=== PATIENT | female | born 1975 | race Caucasian/White ===

== ENCOUNTER 2021-06-11 09:04 | Outpatient (REF) | payer OTHER, SELFPAY ==
[2021-06-11 09:28] LABS: MANUAL DIFF FLAG NO
[2021-06-11 10:12] LABS: Basophils Percent Auto 0.3 % (0-2); Eosinophils Absolute Auto 0.1 X10*3/uL (0.0-0.4); Eosinophils Percent Auto 0.9 % (0-4); Hematocrit 36.1 % (37-47); Imm Gran Abs Auto 0.05 X10*3/uL (0.00-0.03); Imm Gran Pct Auto 0.5 % (0.0-0.4); Lymphocytes Percent Auto 21.3 % (20-40); Mean Corpuscular HGB Conc 30.5 g/dl (31.0-35.0); Mean Corpuscular Hemoglobin 22.5 pg (27.0-33.0); Mean Platelet Volume 10.3 fL (9.4-12.3); Monocytes Absolute Auto 0.5 X10*3/uL (0.1-1.2); Monocytes Percent Auto 5.3 % (2-11); Neutrophils Absolute Auto 6.8 X10*3/uL (2.0-8.3); Neutrophils Percent Auto 71.7 % (45-73); Platelet Count 349 X10*3/uL (160-400); Red Blood Count 4.88 X10*6/uL (4.20-5.50); Red Cell Distribution Width 18.3 % (11.0-16.0); White Blood Count 9.5 X10*3/uL (4.8-10.8)
[2021-06-11 10:44] LABS: Alanine Aminotransferase 15 U/L (0-31); Alkaline Phosphatase 119 U/L (39-117); Anion Gap 11 (12-20); Aspartate Amino Transferase 19 U/L (5-31); Bilirubin Total 0.6 mg/dL (0.0-1.0); Blood Urea Nitrogen 7 mg/dL (9-16); Calcium 8.9 mg/dL (8.4-10.2); Carbon Dioxide 24 mmol/L (22-29); Chloride 109 mmol/L (96-108); Cholesterol 189 mg/dL; Estimated Glomerular Filt Rate > 60; Glucose Random 90 mg/dL (60-115); HDL Cholesterol 40 mg/dL; LDL Cholesterol Calculated 119 mg/dl; Potassium 4.2 mmol/L (3.3-5.1); Sodium 140 mmol/L (135-145); Total Protein 7.3 g/dL (6.5-8.0); Triglycerides 154 mg/dL
[2021-06-11 11:06] LABS: Free T4 (Free Thyroxine) 0.76 ng/dL (0.71-1.85); Thyroid Stimulating Hormone 0.55 uIU/mL (0.32-4.0)
[2021-06-11 11:09] LABS: Vitamin B12 430 pg/mL (200-900)
== END 2021-06-11 09:05 | disposition home or self-care (01) ==
LOC: HO.LAB 09:04
PROVIDERS: PCP Internal Medicine; Visit Provider Internal Medicine
DX: E78.00 Pure hypercholesterolemia, unspecified (principal)
CPT/HCPCS: 36415; 80053; 80061; 82306; 82607; 82746; 84439; 84443; 85025

== ENCOUNTER 2021-07-09 16:25 | Outpatient (REF) | payer OTHER, SELFPAY ==
[2021-07-09 16:34] LABS: MANUAL DIFF FLAG NO
[2021-07-09 16:47] LABS: Basophils Percent Auto 0.3 % (0-2); Eosinophils Absolute Auto 0.2 X10*3/uL (0.0-0.4); Eosinophils Percent Auto 1.4 % (0-4); Hematocrit 35.7 % (37.0-47.0); Imm Gran Abs Auto 0.04 X10*3/uL (0.00-0.03); Imm Gran Pct Auto 0.4 % (0.0-0.4); Immature Retic Fraction 32.3 % (3.0-15.9); Lymphocytes Absolute Auto 2.9 X10*3/uL (1.2-4.9); Lymphocytes Percent Auto 26.1 % (20-40); Mean Corpuscular HGB Conc 30.8 g/dl (31.0-35.0); Mean Corpuscular Hemoglobin 22.9 pg (27.0-33.0); Mean Corpuscular Volume 74.2 fL (80.0-98.0); Monocytes Absolute Auto 0.5 X10*3/uL (0.1-1.2); Monocytes Percent Auto 4.6 % (2-11); Neutrophils Absolute Auto 7.5 x10*3/uL (2.0-8.3); Neutrophils Percent Auto 67.2 % (45-73); Platelet Count 364 X10*3/uL (160-400); Red Blood Count 4.81 X10*6/uL (4.20-5.50); Red Cell Distribution Width 18.6 % (11.0-16.0); Retic HGB Equivalent 24.9 pg (30.0-35.0); Reticulocyte Percent 1.7 % (0.5-1.8); White Blood Count 11.2 X10*3/uL (4.8-10.8)
[2021-07-09 17:19] LABS: Iron 17 mcg/dL (30-160); Percent Iron Saturation 5 % (15-50); Total Iron Binding Capacity 363 mcg/dL (228-428); Unsaturated Iron Binding 346 ug/dL
[2021-07-09 17:23] LABS: Ferritin 15 ng/mL (10-250)
[2021-07-09 17:29] LABS: Erythrocyte Sedimentation Rate 44 MM/HR (0-20); Rheumatoid Factor < 15.0 IU/mL (<15.0)
[2021-07-09 17:36] LABS: Folate 7.3 ng/mL (> or = 4.0); Vitamin B12 436 pg/mL (200-900)
[2021-07-11 12:07] LABS: Anti Nuclear Antibody Screen NEGATIVE (NEGATIVE)
== END 2021-07-09 16:26 | disposition home or self-care (01) ==
LOC: HO.LAB 16:25
PROVIDERS: PCP Internal Medicine; Visit Provider Internal Medicine
DX: K58.9 Irritable bowel syndrome, unspecified (principal); R79.89 Other specified abnormal findings of blood chemistry
CPT/HCPCS: 36415; 82607; 82728; 82746; 83540; 85025; 85045; 85652; 86038; 86039; 86431

== ENCOUNTER 2021-09-02 09:02 | Outpatient (REF) | payer OTHER, SELFPAY ==
--- NOTE | ~2021-09-02 | XR_ITS ---
EXAMINATION: XR CHEST CLINICAL INFORMATION: Cough COMPARISON: None TECHNIQUE: 2 views of the chest were obtained. FINDINGS: Cardiomediastinal silhouette is normal. There is bronchial wall thickening without consolidation. No pleural effusion or pneumothorax. Mild degenerative changes in the thoracic spine. XR/XR chest 2V IMPRESSION: Bronchial wall thickening without consolidation suggesting small airways disease.
== END 2021-09-02 09:03 | disposition home or self-care (01) ==
LOC: HO.HMGCX 09:02
PROVIDERS: PCP Internal Medicine; Visit Provider Physician Assistant
DX: R05.9 Cough, unspecified (principal)
CPT/HCPCS: 71046

== ENCOUNTER 2022-03-23 14:18 | Outpatient (REF) | payer OTHER, SELFPAY ==
--- NOTE | ~2022-03-23 | XR_ITS ---
EXAMINATION: XR SHOULDER, LEFT CLINICAL INFORMATION: Unspecified sprain of the left shoulder. COMPARISON: None TECHNIQUE: Three views of the left shoulder. FINDINGS: There is mild caudal subluxation of the humeral head at the level of the glenoid as can be seen in the setting of an effusion or fluid in the subacromial bursa. No fractures. No dislocation. There is mild acromioclavicular osteoarthritis. Small glenoid osteophytes indicate minimal glenohumeral osteoarthritis. Mild soft tissue swelling at the shoulder. XR/XR shoulder LT min 2V IMPRESSION: 1. No acute fracture. Mild caudal subluxation of the humeral head at the level of the glenoid as can be seen with effusion or subacromial fluid. No dislocation. 2. Mild acromioclavicular and minimal glenohumeral osteoarthritis
== END 2022-03-23 14:19 | disposition home or self-care (01) ==
LOC: HO.HMGCX 14:18
PROVIDERS: PCP Internal Medicine; Visit Provider Internal Medicine
DX: S43.402A Unspecified sprain of left shoulder joint, initial encounter (principal)
CPT/HCPCS: 73030

== ENCOUNTER 2022-05-21 08:46 | Outpatient (REF) | payer OTHER, SELFPAY ==
[2022-05-21 09:00] LABS: MANUAL DIFF FLAG NO
[2022-05-21 09:52] LABS: Basophils Absolute Auto 0.1 X10*3/uL (0.0-0.2); Basophils Percent Auto 0.4 % (0-2); Eosinophils Absolute Auto 0.1 X10*3/uL (0.0-0.4); Eosinophils Percent Auto 0.9 % (0-4); Hematocrit 37.6 % (37.0-47.0); Hemoglobin 11.3 g/dl (12.0-16.0); Imm Gran Abs Auto 0.15 X10*3/uL (0.00-0.03); Imm Gran Pct Auto 1.3 % (0.0-0.4); Immature Retic Fraction 30.6 % (3.0-15.9); Lymphocytes Absolute Auto 2.2 X10*3/uL (1.2-4.9); Lymphocytes Percent Auto 19.3 % (20-40); Mean Corpuscular HGB Conc 30.1 g/dl (31.0-35.0); Mean Corpuscular Hemoglobin 22.5 pg (27.0-33.0); Mean Corpuscular Volume 74.8 fL (80.0-98.0); Monocytes Absolute Auto 0.5 X10*3/uL (0.1-1.2); Monocytes Percent Auto 4.1 % (2-11); Neutrophils Absolute Auto 8.4 x10*3/uL (2.0-8.3); Platelet Count 264 X10*3/uL (160-400); Red Blood Count 5.03 X10*6/uL (4.20-5.50); Red Cell Distribution Width 18.9 % (11.0-16.0); Retic HGB Equivalent 25.7 pg (30.0-35.0); Reticulocyte Percent 1.5 % (0.5-1.8); Reticulocytes Absolute 0.076 X10*6/uL (0.026-0.095); White Blood Count 11.4 X10*3/uL (4.8-10.8)
[2022-05-21 10:11] LABS: Appearance Urine Clear; Color Urine Yellow; Glucose Urine UA Negative (Negative); Leukocyte Esterase Urine Trace (Negative); Nitrite Urine Negative (Negative); PH 6.5 (5.0-9.0); Specific Gravity - Urine 1.015 (1.005-1.025); UMIC TRIGGER UA YES; Urine Blood Small (1+) (Negative); Urine Ketones Negative (Negative); Urine Protein Trace mg/dL (Neg-Trace)
[2022-05-21 10:44] LABS: Alanine Aminotransferase 14 U/L (0-31); Albumin Level 4.1 g/dL (3.5-5.0); Alkaline Phosphatase 106 U/L (39-117); Anion Gap 16 (12-20); Aspartate Amino Transferase 16 U/L (5-31); Bilirubin Total 0.4 mg/dL (0.0-1.0); Blood Urea Nitrogen 9 mg/dL (9-16); Calcium 9.1 mg/dL (8.4-10.2); Carbon Dioxide 17 mmol/L (22-29); Chloride 110 mmol/L (96-108); Cholesterol 192 mg/dL; Estimated Glomerular Filt Rate > 60; Glucose Random 90 mg/dL (60-115); HDL Cholesterol 43 mg/dL; Iron 25 mcg/dL (30-160); LDL Cholesterol Calculated 122 mg/dl; Percent Iron Saturation 7 % (15-50); Potassium 4.2 mmol/L (3.3-5.1); Sodium 139 mmol/L (135-145); Total Iron Binding Capacity 352 mcg/dL (228-428); Total Protein 7.5 g/dL (6.5-8.0); Triglycerides 135 mg/dL; Unsaturated Iron Binding 327 ug/dL
[2022-05-21 10:54] LABS: Ferritin 18 ng/mL (10-250); Free T4 (Free Thyroxine) 0.83 ng/dL (0.71-1.85); Thyroid Stimulating Hormone 0.52 uIU/mL (0.32-4.0); Vitamin D 25-OH Total 27.5 ng/mL (>30)
[2022-05-21 11:06] LABS: Folate 9.8 ng/mL (> or = 4.0); Vitamin B12 322 pg/mL (200-900)
[2022-05-21 12:46] LABS: Bacteria Urine Trace (None Seen); Hyaline Casts Urine 0-2 /LPF (0-2); RBC Urine 0-2 /HPF (0-2); WBC Urine 0-5 /HPF (0-5)
== END 2022-05-21 08:47 | disposition home or self-care (01) ==
LOC: HO.LAB 08:46
PROVIDERS: PCP Internal Medicine; Visit Provider Internal Medicine
DX: D50.9 Iron deficiency anemia, unspecified (principal); E78.00 Pure hypercholesterolemia, unspecified; I10 Essential (primary) hypertension
CPT/HCPCS: 36415; 80053; 80061; 81001; 82306; 82607; 82728; 82746; 83540; 84439; 84443; 85025; 85045

== ENCOUNTER 2023-03-04 08:06 | Outpatient (AMB) | payer OTHER, SELFPAY ==
--- NOTE | 2023-03-04 08:27 | MHC.OFFWIV ---
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 Patient reports left great toe pain, swelling, and erythema. She states she had an ingrown toenail that she removed about 1 week ago. She states the pain improved but then she started to developed pain, swelling, and erythema yesterday. She denies any fevers or chills. She denies any drainage. Patient otherwise feels well. [facility] Medical History (Updated 06/21/22 @ 11:31 by Hussein Brand MD) Hypercholesterolemia Migraine Mycoplasma pneumonia Obesity (BMI 30-39.9) Renal calculus Tobacco abuse Vitamin D deficiency Family History Father Alcohol abuse Mother No problems noted. Brother Alcohol abuse Brother No problems noted. Sister No problems noted. Sister No problems noted. Daughter No problems noted. Daughter No problems noted. Son No problems noted. Social History Housing: Apartment Alcohol intake: current Patient Tobacco Use Status: Current everyday Tobacco user Tobacco use type: Cigarette Cigarettes Per Day: 10 e-Cigarette/Vaping Use: Never Used Second Hand Smoke Exposure: Yes service: No Current occupational status: unemployed Cognitive needs: No Hearing needs: No Vision needs: Yes Review of Systems Const All systems reviewed & are unremarkable except as noted in HPI and below Denies chills and Denies fever(s) ENT Reports no additional complaints Card Reports no additional complaints Resp Reports no additional complaints GI Reports no additional complaints Reports no additional complaints Musc Reports arthralgias and Reports joint swelling Skin/Breast Reports change in pigmentation Psych Reports no additional complaints Physical Exam Vital Signs: Last Vital Signs Temp 97.2 F 03/04/23 08:29 Pulse 80 03/04/23 08:29 BP 132/80 03/04/23 08:29 Pulse Ox 98 03/04/23 08:29 Const General: cooperative Orientation/consciousness: patient oriented x3 HEENT Head: Yes normal to inspection Ears: hearing grossly normal bilaterally General nose exam: Normal external nose present Face and sinus: Yes normal facial exam Resp Effort & Inspection: normal respiratory effort and able to speak in complete sentences Cardio Rate: regular rate Rhythm: regular rhythm Skin Other: Erythema and swelling of the left great toe. No fluctuance or induration to suggest underlying abscess. Neuro General: patient oriented x3 Extrem Other: Tenderness to palpation of the distal aspect of the left great toe. Assessment & Plan Assessment & Plan (1) Cellulitis of toe of left foot: Code(s): L03.032 - Cellulitis of left toe Plan 47-year-old female presenting with swelling, pain, erythema of the left great toe after removal of an ingrown toenail. History and physical most consistent with cellulitis of the left great toe. No evidence of abscess, no drainable collection at this time. No signs of systemic infection. P.o. cephalexin 500 mg 4 times daily x7 days sent to pharmacy. Patient instructed to soak the foot in warm soapy water times 20 minutes 3 times daily. Patient was instructed to follow-up here or the emergency room for worsening or persistent symptoms. Patient verbalizes understanding and she is agreeable with the plan. Medications: New cephalexin 500 mg PO QID 28 caps 0RF Coding Level of Care Code Est Pt Level 3 (01451) Diagnoses Cellulitis of toe of left foot L03.032
[2023-03-04 08:29] VITALS: BP 132/80; PULSE 80; TEMP 36.2; O2SAT 98
== END 2023-03-04 09:09 | disposition home or self-care (01) ==
PROVIDERS: PCP Internal Medicine; Visit Provider Physician Assistant Medical
DX: L03.032 Cellulitis of left toe (principal)
CPT/HCPCS: 99213

== ENCOUNTER 2023-05-31 16:22 | Outpatient (AMB) | payer OTHER, SELFPAY ==
--- NOTE | 2023-05-31 16:42 | MHC.OFFWIV ---
Intake Vital Signs 05/31/23 16:43 Weight 167 lb BP 124/90 H Blood Pressure Location Lt brachial Position Sitting Pulse 77 Pulse Source Pulse Oximeter Pulse Oximetry (%) 97 Oxygen Delivery Method Room Air Intake Visit Reasons: EST/back pain(lobby) Intake Note: Patient here for major back pain that has been present for about 2 weeks. Denies any injuries, falls. Patient Tobacco Use Status: Current everyday Tobacco user Allergies aspirin [ASPIRIN] Allergy (Unknown, Verified 05/31/23 17:05) RASH Medication List - Last Reconciled 05/31/23 by Erik Dominguez MD blood pressure monitor (Blood Pressure Kit) As directed lisinopril-hydrochlorothiazide 10-12.5 mg 1 tab PO DAILY Do you need a note to return to daycare/school/sports/work: No HPI EST/back pain(lobby) HPI Details Patient presents to the office for a sick visit. Complaining of lower back pain for the past week. No history of fall or trauma prior to the onset of symptoms. No urinary incontinence. No fevers or chills. Pain is worse on bending forwards or sideways. Relieve done sitting down. Pain is radiating into the gluteal area. [facility] Medical History (Updated 05/31/23 @ 17:06 by Erik Dominguez MD) Mycoplasma pneumonia Hypercholesterolemia Renal calculus Vitamin D deficiency Tobacco abuse Obesity (BMI 30-39.9) Migraine Family History Father Alcohol abuse Mother No problems noted. Brother Alcohol abuse Brother No problems noted. Sister No problems noted. Sister No problems noted. Daughter No problems noted. Daughter No problems noted. Son No problems noted. Social History Housing: Apartment Alcohol intake: current Patient Tobacco Use Status: Current everyday Tobacco user Tobacco use type: Cigarette Cigarettes Per Day: 10 e-Cigarette/Vaping Use: Never Used Second Hand Smoke Exposure: Yes service: No Current occupational status: unemployed Cognitive needs: No Hearing needs: No Vision needs: Yes Physical Exam Vital Signs: Last Vital Signs Pulse 77 05/31/23 16:43 BP 124/90 H 05/31/23 16:43 Pulse Ox 97 05/31/23 16:43 Oxygen Delivery Method Room Air 05/31/23 16:43 Const General: cooperative and healthy appearing Nutritional Appearance: well nourished Orientation/consciousness: patient oriented x3 Limitations: no limitations HEENT Head: Yes normal to inspection Eyes General: appearance normal, both eyes and all related structures Neck Neck: Yes normal visual inspection Chest Chest palpation & inspection: normal palpation of entire chest wall Resp Effort & Inspection: normal respiratory effort Neuro General: patient oriented x3 Assessment & Plan Assessment & Plan (1) Chronic lower back pain: Code(s): M54.50 - Low back pain, unspecified; G89.29 - Other chronic pain Plan: Meloxicam and cyclobenzaprine called in. Toradol injection provided. Patient was advised rest. Note for work if necessary provided. Once pain symptoms subside, patient should start physical therapy. If symptoms worsen to follow-up here. Coding Level of Care Code Est Pt Level 3 (81293) Diagnoses Chronic lower back pain M54.50; G89.29
[2023-05-31 16:43] VITALS: BP 124/90; PULSE 77; O2SAT 97
== END 2023-06-01 08:32 | disposition home or self-care (01) ==
PROVIDERS: PCP Internal Medicine; Visit Provider Internal Medicine
DX: M54.50 Low back pain, unspecified (principal); G89.29 Other chronic pain
CPT/HCPCS: 99213

== ENCOUNTER 2023-06-13 10:39 | Outpatient (AMB) | payer OTHER, SELFPAY ==
[2023-06-13 10:46] VITALS: BP 138/80; PULSE 67; O2SAT 98; BMI 35.1
--- NOTE | 2023-06-13 10:46 | A.OFFPC_ITS ---
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 Accompanied by: Friend Allergies aspirin [ASPIRIN] Allergy (Unknown, Verified 06/13/23 11:01) RASH Medication List - Last Reconciled 06/13/23 by NICCI Mendoza blood pressure monitor (Blood Pressure Kit) As directed lisinopril-hydrochlorothiazide 10-12.5 mg 1 tab PO DAILY Tobacco use date assessed: 06/13/23 Dental Screening Dental Screen Date: 06/13/23 Did you have a dental visit in the last 12 months?: No Did you have a dental problem in the last 6 months where you did not have access to dental care?: No Was dental information given to patient?: Patient has dentist HPI HPI Comments History of Present Illness Details 47-year-old female past medical history significant for hypercholesteremia, IBS, anemia, hypertension and chronic low back pain. Patient of patient presents today for follow-up. Blood pressure 138/80, patient reports she did take her lisinopril-HCTZ this morning. Patient reports she does eat a lot of salt in her diet. Patient advised to follow low-salt diet. Patient currently smoking states has previously quit for 1 year in the past while she was taking Chantix. Patient requesting prescription for this, Rx sent to patient's pharmacy. Patient reports she did miss her physical exam this year, fasting blood work ordered. [facility] Medical History (Updated 05/31/23 @ 17:06 by Erik Dominguez MD) Mycoplasma pneumonia Hypercholesterolemia Renal calculus Vitamin D deficiency Tobacco abuse Obesity (BMI 30-39.9) Migraine Family History Father Alcohol abuse Mother No problems noted. Brother Alcohol abuse Brother No problems noted. Sister No problems noted. Sister No problems noted. Daughter No problems noted. Daughter No problems noted. Son No problems noted. Social History Housing: Apartment Alcohol intake: current Patient Tobacco Use Status: Current everyday Tobacco user Tobacco use type: Cigarette Cigarettes Per Day: 15 e-Cigarette/Vaping Use: Never Used Second Hand Smoke Exposure: Yes service: No Current occupational status: unemployed Cognitive needs: No Hearing needs: No Vision needs: Yes Questionnaire PHQ-9 Over the last 2 weeks, how often have you been bothered by any of the following problems? 1. Little interest or pleasure in doing things: not at all 2. Feeling down, depressed, or hopeless: not at all 3. Trouble falling or staying asleep, or sleeping too much: not at all 4. Feeling tired or having little energy: not at all 5. Poor appetite or overeating: not at all 6. Feeling bad about yourself - or that you are a failure or have let yourself or your family down: not at all 7. Trouble concentrating on things, such as reading the newspaper or watching television: not at all 8. Moving or speaking so slowly that other people could have noticed. Or the opposite - being so fidgety or restless that you have been moving around a lot more than usual: not at all 9. Thoughts that you would be better off or of hurting yourself in some way: not at all Total score: 0 Depression Screening Interpretation: Negative Depression Screening Done: Yes 49504 - PHQ-9 Billing: Yes Source: Developed by Drs. Isael Vance, Maricruz Gibson, Paolo Rhodes and colleagues, with an educational elio from [employer] Thrive Questionnaire Date Thrive assessed: 06/13/23 I am a: Patient What is your living situation today?: I have a steady place to live Within the past 12 months, did the food you bought not last and you didn't have the money to get more?: Never true Within the past 12 months, did you worry whether your food would run out before you got money to buy more?: Never true Do you have trouble paying for medicines?: No Do you have trouble getting transportation to medical appointments?: No Do you have trouble paying your heating and electricity bill?: No Do you have trouble taking care of your child, family member or friend?: No Do you have trouble with day-to-day activities such as bathing, preparing meals, shopping, managing finances, etc.?: No Are you currently unemployed and looking for a job?: No Are you interested in more education?: No Please select the resources that you would like help with: None Currently or been in a relationship where the following occur: no concerns reported AUDIT C Alcohol Use Questionnaire (AUDIT-C) 1. How often do you have a drink containing alcohol?: Monthly or less 2. How many drinks containing alcohol do you have on a typical day when you are drinking?: 1 or 2 3. How often do you have six or more drinks on one occasion?: Never Total Score: 1 REJI-7 AMB Questionnaire REJI-7 Date REJI - 7 assessed: 06/13/23 Feeling nervous, anxious, or on edge: 0 = Not at all Not being able to stop or control worryin = Not at all Worrying too much about different things: 0 = Not at all Trouble relaxin = Not at all Being so restless that it is hard to sit still: 0 = Not at all Becoming easily annoyed or irritable: 0 = Not at all Feeling afraid as if something awful might happen: 0 = Not at all Total REJI-7 score (0-4 normal; 5-9 mild; 10-14 moderate; 15-21 severe): 0 Source: Developed by Drs. Isael Vance, Maricruz Gibson, Paolo Rhodes and colleagues, with an educational elio from [employer] REJI-7 Assessment Billing REJI-7 Assessment Tool: REJI-7 Assessment 69388 Review of Systems Const Denies chills, Denies fatigue, Denies fever(s) and Denies poor appetite Eyes Denies no additional complaints ENT Reports Normal hearing present Card Denies chest pain, Denies syncope, Denies rapid heart rate and Denies dyspnea Resp Denies cough and Denies dyspnea GI Denies change in stool character, Denies constipation, Denies diarrhea, Denies nausea and Denies vomiting Denies urinary frequency, Denies dysuria and Denies urinary urgency Neuro Reports Normal hearing present, Denies confusion and Denies syncope Psych Denies confusion Endo Denies fatigue Physical exam (Primary Care) Vital Signs: Last Vital Signs Pulse 67 06/13/23 10:46 BP 138/80 06/13/23 10:46 Pulse Ox 98 06/13/23 10:46 Oxygen Delivery Method Room Air 06/13/23 10:46 BMI result Body Mass Index 35.1 Tobacco/Smoking Status: Tobacco use Status Tobacco use date assessed 06/13/23 06/13/23 10:57 Patient Tobacco Use Status Current everyday Tobacco 06/13/23 10:57 Tobacco use type Cigarette 06/13/23 10:57 e-Cigarette/Vaping Use Never Used 06/13/23 10:57 PHQ-9: PHQ-9 Score PHQ-9: Total score 0 06/13/23 11:06 Depression Screening Interpretation: Negative Thrive Assessment: Date of Thrive Assessment Date Thrive assessed 06/13/23 06/13/23 10:57 Currently or been in a relationship where the following occur: no concerns reported Const General: No confusion Orientation/consciousness: No confusion HENMT Head: Yes normocephalic and Yes atraumatic Eyes Conjunctivae: conjunctivae normal Chest Chest palpation & inspection: normal inspection of the chest Resp Effort & Inspection: normal respiratory effort Auscultation: clear to auscultation bilaterally, no crackles, no rhonchi and no wheezes Cardio Rate: regular rate Rhythm: regular rhythm Heart sounds: S1 normal heart sound present and S2 normal heart sound present GI Inspection: Yes normal to inspection Neuro General: No confusion Cranial nerves: Yes Normal hearing present Extrem General: No edema Office Procedures Flu Questionnaire Does the patient have a severe egg allergy?: No Immunizations flu vacc [id number] 6mos up(PF) 60 mcg(15 mcgx4)/0.5 mL IM syringe Performing Provider: NICCI Mendoza [facility] Documented (not given) by: RYAN Lam on 06/13/23 10:58 Reason Not Given: Patient Refused Assessment and Plan Assessment & Plan (1) Hypercholesterolemia: Code(s): E78.00 - Pure hypercholesterolemia, unspecified Plan: Fasting lipid panel ordered. Follow low-cholesterol diet. (2) Hypertension: Code(s): I10 - Essential (primary) hypertension Plan: Continue on current medications. Follow low-salt diet. Blood pressure goal less than 140/90. (3) Tobacco abuse: Comment: stopped early 05/2022 Code(s): Z72.0 - Tobacco use Plan: Chantix ordered. Strongly advised to stop. Plan Follow-up in 6 months for physical exam. Orders: Orders Comprehensive [place]. Panel Fast Today I10 - Essential (primary) hypertension Lipid Panel Today Z13.220 - Encounter for screening for lipoid disorders TSH reflex Free T4 Today Z13.29 - Encounter for screening for other suspected endocrine disorder Influenza [phone] Immunization Today Z23 - Encounter for immunization Complete Blood Count Auto Diff Today Z13.0 - Encounter for screening for diseases of the blood and blood-forming organs and certain disorders involving the immune mechanism Medications: New varenicline (Chantix Starting Month Box) PO PER PKG DIR 53 ea 0RF Coding Level of Care Code Est Pt Level 4 (94782) Diagnoses Hypercholesterolemia E78.00 Hypertension I10 Tobacco abuse Z72.0 Additional Codes REJI-7 Assessment Billing - REJI-7 Assessment Tool: REJI-7 Assessment 29524 ([id number])
== END 2023-06-13 11:10 | disposition home or self-care (01) ==
PROVIDERS: PCP Internal Medicine; Visit Provider Nurse Practitioner Family
DX: E78.00 Pure hypercholesterolemia, unspecified (principal); I10 Essential (primary) hypertension; F17.210 Nicotine dependence, cigarettes, uncomplicated
CPT/HCPCS: 99214

== ENCOUNTER 2023-06-13 11:15 | Outpatient (REF) | payer OTHER, SELFPAY ==
[2023-06-13 11:22] LABS: MANUAL DIFF FLAG NO
[2023-06-13 12:10] LABS: Basophils Absolute Auto 0.1 X10*3/uL (0.0-0.2); Basophils Percent Auto 0.5 % (0-2); Eosinophils Absolute Auto 0.1 X10*3/uL (0.0-0.4); Eosinophils Percent Auto 0.7 % (0-4); Hematocrit 42.9 % (37.0-47.0); Hemoglobin 13.6 g/dl (12.0-16.0); Imm Gran Abs Auto 0.06 X10*3/uL (0.00-0.03); Imm Gran Pct Auto 0.6 % (0.0-0.4); Lymphocytes Absolute Auto 2.7 X10*3/uL (1.2-4.9); Lymphocytes Percent Auto 26.7 % (20-40); Mean Corpuscular HGB Conc 31.7 g/dl (31.0-35.0); Mean Corpuscular Hemoglobin 26.5 pg (27.0-33.0); Mean Corpuscular Volume 83.6 fL (80.0-98.0); Mean Platelet Volume 10.6 fL (9.4-12.3); Monocytes Absolute Auto 0.5 X10*3/uL (0.1-1.2); Monocytes Percent Auto 5.2 % (2-11); Neutrophils Absolute Auto 6.8 x10*3/uL (2.0-8.3); Neutrophils Percent Auto 66.3 % (45-73); Platelet Count 301 X10*3/uL (160-400); Red Blood Count 5.13 X10*6/uL (4.20-5.50); Red Cell Distribution Width 15.7 % (11.0-16.0); White Blood Count 10.2 X10*3/uL (4.8-10.8)
[2023-06-13 12:53] LABS: Alanine Aminotransferase 17 U/L (0-31); Albumin Level 4.3 g/dL (3.5-5.0); Alkaline Phosphatase 109 U/L (39-117); Anion Gap 13 (12-20); Aspartate Amino Transferase 19 U/L (5-31); Bilirubin Total 0.7 mg/dL (0.0-1.0); Blood Urea Nitrogen 7 mg/dL (9-16); Calcium 9.9 mg/dL (8.4-10.2); Carbon Dioxide 24 mmol/L (22-29); Chloride 105 mmol/L (96-108); Cholesterol 199 mg/dL (<200); Estimated Glomerular Filt Rate > 60; Glucose Fasting 84 mg/dL (60-99); HDL Cholesterol 50 mg/dL (>40); LDL Cholesterol Calculated 119 mg/dL (<100); Potassium 4.1 mmol/L (3.3-5.1); Sodium 138 mmol/L (135-145); Total Protein 8.1 g/dL (6.5-8.0); Triglycerides 153 mg/dL (<150)
[2023-06-13 13:02] LABS: TSH reflex Free T4 0.35 uIU/mL (0.32-4.0)
== END 2023-06-13 11:16 | disposition home or self-care (01) ==
LOC: HO.LAB 11:15
PROVIDERS: PCP Internal Medicine; Visit Provider Nurse Practitioner Family
DX: I10 Essential (primary) hypertension (principal); Z13.29 Encounter for screening for other suspected endocrine disorder; Z13.220 Encounter for screening for lipoid disorders; Z13.0 Encounter for screening for diseases of the blood and blood-forming organs and certain disorders involving the immune mechanism
CPT/HCPCS: 36415; 80053; 80061; 84443; 85025

== ENCOUNTER 2023-11-10 18:52 | Emergency (ER) | payer OTHER, SELFPAY ==
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
[2023-11-10 19:18] VITALS: BP 156/79; PULSE 80; RESP 18; TEMP 37.1; O2SAT 97; BMI 35.0
[2023-11-10 19:35] VITALS: BP 156/79; PULSE 80; RESP 18; TEMP 37.1; O2SAT 96
== END 2023-11-10 19:36 | disposition home or self-care (01) ==
PROVIDERS: Emergency Provider Internal Medicine; PCP Internal Medicine
DX: S13.4XXA Sprain of ligaments of cervical spine, initial encounter (principal); S29.012A Strain of muscle and tendon of back wall of thorax, initial encounter; S06.0X0A Concussion without loss of consciousness, initial encounter; M54.50 Low back pain, unspecified; V43.52XA Car driver injured in collision with other type car in traffic accident, initial encounter; Y93.9 Activity, unspecified; Y92.410 Unspecified street and highway as the place of occurrence of the external cause; Y99.8 Other external cause status; Z79.899 Other long term (current) drug therapy
CPT/HCPCS: 99282; 99283

== ENCOUNTER 2023-11-13 00:30 | Emergency (ER) | payer OTHER, SELFPAY ==
--- NOTE | ~2023-11-13 | XR_ITS ---
EXAMINATION: XR LUMBOSACRAL SPINE CLINICAL INFORMATION: Low back pain. COMPARISON: None available. TECHNIQUE: Three views of the lumbosacral spine. FINDINGS: The alignment is normal. There is mild diffuse lumbar disc degenerative change with minimal loss of disc space, endplate change and mild osteophyte formation. The bone mineralization is normal. No fracture is seen. The soft tissues are unremarkable. XR/XR lumbar spine 2-3V IMPRESSION: 1. Mild diffuse lumbar degenerative disc disease. 2. No fracture is seen.
[2023-11-13 00:37] VITALS: BP 150/76; PULSE 80; RESP 16; TEMP 36.7; O2SAT 98; BMI 37.5
[2023-11-13 02:13] VITALS: BP 151/73; PULSE 76; RESP 16; O2SAT 96
[2023-11-13 02:25] LABS: Appearance Urine Cloudy; Color Urine Yellow; Glucose Urine UA Negative (Negative); Leukocyte Esterase Urine Negative (Negative); Nitrite Urine Negative (Negative); Specific Gravity - Urine 1.025 (1.005-1.025); UMIC TRIGGER UACC YES; Urine Blood Small (1+) (Negative); Urine Ketones Negative (Negative); Urine Protein Negative (Neg-Trace)
[2023-11-13 02:26] LABS: UPreg QC Valid YES; Urine Pregnancy NEGATIVE (NEGATIVE)
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
[2023-11-13] MEDS: Ketorolac Tromethamine 30 MG/ML VIAL IM (03:13)
[2023-11-13 03:14] LABS: Bacteria Urine 3+ (None Seen); Hyaline Casts Urine 0-2 /LPF (0-2); Squamous Epithelial Cell Urine >20 /HPF (0-2); UACC Culture Trigger YES
[2023-11-13 04:14] VITALS: BP 146/56; PULSE 71; RESP 16; TEMP 36.7; O2SAT 98
[2023-11-13 04:15] VITALS: BP 146/56; PULSE 71; RESP 16; TEMP 36.7; O2SAT 98
== END 2023-11-13 04:16 | disposition home or self-care (01) ==
PROVIDERS: Emergency Medicine; Emergency Provider Emergency Medicine; PCP Internal Medicine
DX: S39.012A Strain of muscle, fascia and tendon of lower back, initial encounter (principal); V44.5XXA Car driver injured in collision with heavy transport vehicle or bus in traffic accident, initial encounter; Y93.9 Activity, unspecified; Y92.410 Unspecified street and highway as the place of occurrence of the external cause; Y99.9 Unspecified external cause status
CPT/HCPCS: 72100; 81001; 81025; 87086; 96372; 99284; J1885

== ENCOUNTER 2023-12-19 10:07 | Outpatient (AMB) | payer OTHER, SELFPAY ==
[2023-12-19 10:08] VITALS: BP 142/84; PULSE 83; O2SAT 98; BMI 37.0
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
== END 2023-12-19 10:46 | disposition home or self-care (01) ==
PROVIDERS: PCP Internal Medicine; Visit Provider Internal Medicine
DX: Z00.00 Encounter for general adult medical examination without abnormal findings (principal); F17.210 Nicotine dependence, cigarettes, uncomplicated; E66.9 Obesity, unspecified; Z68.37 Body mass index [BMI] 37.0-37.9, adult; I10 Essential (primary) hypertension; R06.02 Shortness of breath
CPT/HCPCS: 99396

== ENCOUNTER → 2023-12-28 08:50 | Outpatient (REF) | payer OTHER, SELFPAY ==
--- NOTE | 2023-12-28 08:59 | ECG_ITS ---
Test Reason : r06.02 sob Blood Pressure : / mmHG Vent. Rate : 074 BPM Atrial Rate : 074 BPM P-R Int : 142 ms QRS Dur : 086 ms QT Int : 424 ms P-R-T Axes : 067 030 032 degrees QTc Int : 470 ms Normal sinus rhythm Normal ECG When compared with ECG of 19-DEC-2018 11:39, No significant change was found Referred By: Hussein Brand Electronically Signed By:Jc Corado
[2023-12-28 09:05] LABS: MANUAL DIFF FLAG NO
[2023-12-28 10:05] LABS: Basophils Percent Auto 0.4 % (0-2); Eosinophils Absolute Auto 0.1 X10*3/uL (0.0-0.4); Eosinophils Percent Auto 0.8 % (0-4); Hematocrit 40.5 % (37.0-47.0); Hemoglobin 12.9 g/dl (12.0-16.0); Imm Gran Abs Auto 0.03 X10*3/uL (0.00-0.03); Imm Gran Pct Auto 0.3 % (0.0-0.4); Mean Corpuscular HGB Conc 31.9 g/dl (31.0-35.0); Mean Corpuscular Hemoglobin 25.5 pg (27.0-33.0); Mean Corpuscular Volume 80.2 fL (80.0-98.0); Mean Platelet Volume 10.8 fL (9.4-12.3); Monocytes Absolute Auto 0.6 X10*3/uL (0.1-1.2); Monocytes Percent Auto 6.5 % (2-11); Neutrophils Absolute Auto 6.9 x10*3/uL (2.0-8.3); Platelet Count 315 X10*3/uL (160-400); Red Blood Count 5.05 X10*6/uL (4.20-5.50); Red Cell Distribution Width 16.4 % (11.0-16.0); White Blood Count 9.7 X10*3/uL (4.8-10.8)
[2023-12-28 10:51] LABS: Alanine Aminotransferase 15 U/L (0-31); Albumin Level 4.1 g/dL (3.5-5.0); Alkaline Phosphatase 96 U/L (39-117); Anion Gap 15 (12-20); Aspartate Amino Transferase 16 U/L (5-31); Bilirubin Total 0.8 mg/dL (0.0-1.0); Blood Urea Nitrogen 7 mg/dL (9-16); Calcium 9.5 mg/dL (8.4-10.2); Carbon Dioxide 20 mmol/L (22-29); Chloride 108 mmol/L (96-108); Cholesterol 209 mg/dL (<200); Estimated Glomerular Filt Rate > 60; Free T4 (Free Thyroxine) 0.66 ng/dL (0.71-1.85); Glucose Random 99 mg/dL (60-115); HDL Cholesterol 44 mg/dL (>40); LDL Cholesterol Calculated 134 mg/dL (<100); Potassium 3.5 mmol/L (3.3-5.1); Sodium 139 mmol/L (135-145); Thyroid Stimulating Hormone 0.56 uIU/mL (0.32-4.0); Total Protein 8.2 g/dL (6.5-8.0); Triglycerides 157 mg/dL (<150); Vitamin D 25-OH Total 14.1 ng/mL (>30)
[2023-12-28 11:07] LABS: Folate 7.3 ng/mL (> or = 4.0); Vitamin B12 431 pg/mL (200-900)
== END ==
LOC: HO.CARD 08:50
PROVIDERS: PCP Internal Medicine; Visit Provider Internal Medicine
DX: E78.00 Pure hypercholesterolemia, unspecified (principal); R06.02 Shortness of breath
CPT/HCPCS: 36415; 80053; 80061; 82306; 82607; 82746; 84439; 84443; 85025; 93005

== ENCOUNTER → 2023-12-28 08:59 | Outpatient (BNV) | payer OTHER, SELFPAY | PROVIDERS: PCP Internal Medicine; Visit Provider Internal Medicine Cardiovascular Disease | DX: R06.02 Shortness of breath (principal) | CPT/HCPCS: 93010 ==

== ENCOUNTER 2024-05-01 09:15 | Outpatient (AMB) | payer OTHER, SELFPAY ==
[2024-05-01 09:19] VITALS: BP 122/78; PULSE 75; O2SAT 98; BMI 35.3
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
== END 2024-05-01 09:51 | disposition home or self-care (01) ==
PROVIDERS: PCP Internal Medicine; Visit Provider Internal Medicine
DX: R06.02 Shortness of breath (principal); M54.50 Low back pain, unspecified; E66.9 Obesity, unspecified; Z68.35 Body mass index [BMI] 35.0-35.9, adult; N92.0 Excessive and frequent menstruation with regular cycle; G57.11 Meralgia paresthetica, right lower limb
CPT/HCPCS: 99214

== ENCOUNTER 2024-11-24 22:13 | Inpatient (IN) | payer OTHER, SELFPAY ==
--- NOTE | 2024-11-24 | ECG_ITS ---
Test Reason : chest pain Blood Pressure : */* mmHG Vent. Rate : 83 BPM Atrial Rate : 83 BPM P-R Int : 146 ms QRS Dur : 84 ms QT Int : 388 ms P-R-T Axes : 63 22 36 degrees QTcB Int : 455 ms Normal sinus rhythm Nonspecific T wave abnormality Abnormal ECG When compared with ECG of 28-Dec-2023 09:07, Nonspecific ST and T wave abnormality present Referred By: Generic ED Physician Electronically Signed By: EMILY STRINGER
--- NOTE | ~2024-11-24 | XR_ITS ---
CLINICAL HISTORY: chest pressure 2 views chest Comparison: None Findings: No consolidation or effusion. No acute fracture. Impression: 1. Cardiomegaly without failure. This document has been electronically signed by: Uziel Green MD on 11/24/2024 23:05:09
[2024-11-24 22:20] VITALS: BP 180/89; PULSE 86; RESP 18; TEMP 36.4; O2SAT 98; BMI 34.1
--- NOTE | 2024-11-24 22:43 | ED_ITS ---
HPI - Chest Pain General Chief Complaint: Chest Pain Stated Complaint: chest pain Time Seen by Provider: 11/24/24 22:43 Source: patient Mode of arrival: ambulatory Limitations: no limitations History of Present Illness ED Provider: HPI narrative: Patient's history of borderline hypertension no known coronary artery disease no diabetic comes here for mid chest pain started yesterday 13:00 off and on but been constant since a.m. today feels pressure-like feeling staying in the mid chest also complaining of left arm pain no diaphoresis no shortness a breath no nausea no vomiting no relation of the pain with movements Related Data Previous Rx's ?Medication ?Instructions ?Recorded blood pressure monitor (Blood #1 ea 05/20/22 Pressure Kit) acetaminophen 325 mg capsule 650 mg (2 x 325 mg) PO Q4H PRN 11/10/23 (Tylenol) pain #30 caps cholecalciferol (vitamin D3) 50 50 mcg PO DAILY 90 days #90 caps 05/01/24 mcg (2,000 unit) capsule varenicline tartrate 0.5 mg (11)-1 See Rx Instructions PO PER PKG DIR 08/17/24 mg (42) tablets in a dose pack #53 ea (Chantix Starting Month Box) lisinopril 30 mg tablet 30 mg PO DAILY #90 tabs 08/24/24 meloxicam 7.5 mg tablet 7.5 mg PO DAILY #30 tabs 11/02/24 Allergies Allergy/AdvReac Type Severity Reaction Status Date / Time aspirin [ASPIRIN] Allergy Unknown RASH Verified 11/24/24 22:23 Review of Systems 2 Review of Systems: Yes all other systems are reviewed and are negative PMFSH Past Medical History Medical History Anemia Blood pressure elevated without history of HTN Iron deficiency anemia Sprain of right shoulder Cough Mycoplasma pneumonia Hypercholesterolemia Renal calculus Vitamin D deficiency Tobacco abuse Obesity (BMI 30-39.9) Migraine Family History Family History Father Alcohol abuse Mother No problems noted. Brother Alcohol abuse Brother No problems noted. Sister No problems noted. Sister No problems noted. Daughter No problems noted. Daughter No problems noted. Son No problems noted. Social History Social History Housing: Apartment Alcohol intake: current Alcohol intake frequency: does not drink Comment: 2-3 x a year- 3 drinks Patient Tobacco Use Status: Current everyday Tobacco user Tobacco use type: Cigarette Cigarettes Per Day: 15 Smoked in Last 30 Days: Yes e-Cigarette/Vaping Use: Never Used Second Hand Smoke Exposure: Yes Use of substances other than those prescribed or required for medical reasons: No Advance Directives: No Advance Directives Information Provided: No Do you have a plan to hurt others: No Plan service: No Current occupational status: unemployed Cognitive needs: No Hearing needs: No Vision needs: Yes Physical Exam 2 Vital Signs: Vital Signs: Last Vital Signs Temp 98.1 F 11/25/24 00:52 Pulse 77 11/25/24 01:33 Resp 16 11/25/24 01:33 BP 160/75 H 11/25/24 01:33 Pulse Ox 96 11/25/24 01:33 O2 Del Method Room Air 11/25/24 01:33 BMI result Body Mass Index 34.1 Appearance: Alert. Oriented X3. No acute distress. Eyes: PERRLA, No Nystagmus ENT: Pharynx normal. Oral Mucosa moist Neck: Normal inspection. Neck supple. CVS: Normal heart rate and rhythm. Pulses normal. No murmur rub or gallop Respiratory: No respiratory distress. Equal air entry bilateral, no wheezing/rales/rhonchi Abdomen: Soft and nontender. Bowel sounds are present, no mass palpable, no CVA tenderness Skin: Skin warm and dry. Normal skin color. Normal skin turgor. Extremities: No lower extremity edema. No calf tenderness Neuro: Oriented X 3. No motor deficit. No sensory deficit.No cerebellar signs , cranial nerves II-XII intact Medications Administered Discontinued Medications Generic Name Dose Route Start Last Admin Trade Name Freq PRN Reason Stop Dose Admin Clopidogrel Bisulfate 300 mg 11/24/24 23:22 11/25/24 00:27 Clopidogrel Bisulfate 300 Mg Tablet PO 11/24/24 23:23 300 mg ONCE ONE Administration Heparin Sodium (Porcine) 5,000 unit 11/24/24 23:28 11/24/24 23:58 Heparin Sodium,Porcine 5,000 Unit/Ml Vial IVPUSH 11/24/24 23:29 5,000 unit ONCE ONE Administration Nitroglycerin 1 inch 11/24/24 23:22 11/24/24 23:57 Nitroglycerin 2 % Oint 1 Gm Packet TRANSDERMA 11/24/24 23:23 1 inch ONCE ONE Administration Medical Decision Making Medical Decision Making [facility] Narrative: Patient with chest pain etiology not very clear EKG without any ischemic changes troponin is elevated CPK is normal chest pain is going on for more than 24 hours. Not much response to nitro paste. Patient's allergic to aspirin was given Plavix, Will start patient on heparin drip patient looks comfortable otherwise vitals are stable admit to rule out ACS Repeat troponin without any delta change CPK normal will admit patient for further evaluation Differential Diagnosis Differential Diagnoses: The differential diagnosis associated with the presentation includes ACS/non-STEMI/PE/pericarditis/myocarditis/atypical chest pain Admission/Observation Consideration of admission/observation: Escalation of care including admission/observation considered Consult Healthcare Provider Management of the patient was discussed with: Hospitalist Lab Data [facility] Lab Attestation statement: I reviewed the patient's lab results. 11/24/24 22:50 11/24/24 22:50 Labs: Lab Results 11/24/24 11/24/24 11/25/24 Range/Units 22:50 23:51 01:00 WBC 13.2 H (4.8-10.8) X10*3/uL RBC 4.75 (4.20-5.50) X10*6/uL Hgb 12.6 (12.0-16.0) g/dl Hct 37.3 (37.0-47.0) % MCV 78.5 L (80.0-98.0) fL MCH 26.5 L (27.0-33.0) pg MCHC 33.8 (31.0-35.0) g/dl RDW 15.9 (11.0-16.0) % Plt Count 308 (160-400) X10*3/uL MPV 10.4 (9.4-12.3) fL Immature Gran % (Auto) 0.3 (0.0-0.4) % Neut % (Auto) 67.5 (45-73) % Lymph % (Auto) 25.1 (20-40) % [place] % (Auto) 5.8 (2-11) % Eos % (Auto) 0.9 (0-4) % Baso % (Auto) 0.4 (0-2) % Lymph # (Auto) 3.3 (1.2-4.9) X10*3/uL [place] # (Auto) 0.8 (0.1-1.2) X10*3/uL Eos # (Auto) 0.1 (0.0-0.4) X10*3/uL Baso # (Auto) 0.1 (0.0-0.2) X10*3/uL Abs Immat Gran (auto) 0.04 H (0.00-0.03) X10*3/uL Absolute Neuts (auto) 8.9 H (2.0-8.3) x10*3/uL Absolute Nucleated RBC 0.000 (0.0-0.012) X10*3/uL Nucleated RBC % (auto) 0.0 (0.0-0.2) /100WBC PT 12.2 (10.9-12.4) SEC INR 1.0 (0.9-1.1) APTT 32.0 (26.0-36.8) SEC D-Dimer High Sensitivty 269 NG/ML Sodium 139 (135-145) mmol/L Potassium 3.6 (3.3-5.1) mmol/L Chloride 110 H (96-108) mmol/L Carbon Dioxide 22 (22-29) mmol/L Anion Gap 11 L (12-20) BUN 15 (9-16) mg/dL Creatinine 0.85 (0.5-1.4) mg/dL Estim Creat Clear Calc 73.0 Estimated GFR > 60 Random Glucose 98 (60-115) mg/dL Calcium 9.3 (8.4-10.2) mg/dL Total Bilirubin 0.3 (0.0-1.0) mg/dL AST 21 (5-31) U/L ALT 11 (0-31) U/L Alkaline Phosphatase 99 (39-117) U/L Total Creatine Kinase 98 (26-140) U/L Troponin I High Sens 100.7 H* 103.4 H* (<3.5-17.0) ng/L C-Reactive Protein 1.66 H (< or = 0.50) mg/dL Total Protein 7.4 (6.5-8.0) g/dL Albumin 3.9 (3.5-5.0) g/dL Urine Color Yellow Urine Appearance Clear Urine pH 6.5 (5.0-9.0) Ur Specific [place] 1.020 (1.005-1.025) Urine Protein Negative (Neg-Trace) mg/dL Urine Glucose (UA) Negative (Negative) mg/dL Urine Ketones Negative (Negative) mg/dL Urine Blood Trace H (Negative) Urine Nitrite Negative (Negative) Ur Leukocyte Esterase Trace H (Negative) Urine RBC 3-5 H (0-2) /HPF Urine WBC 6-10 H (0-5) /HPF Ur Squamous Epith Cells 6-10 (0-2) /HPF Urine Bacteria 2+ (None Seen) Hyaline Casts 3-5 (0-2) /LPF Independent Interpretation I performed an independent interpretation of an: EKG Interpretation: Normal sinus rhythm heart rate 83 beats per minute normal interval normal axis no acute ST-T changes no acute ischemia Scores Heart Score History: -0- slightly suspicious ECG: -0- normal Age: -1- >45 - <65 Risk factory: -1- 1 or 2 risk factors Troponin: -0- < or = normal limit Score: 2 Risk: 1.7% Discharge Plan Discharge Clinical Impression: Non-ST elevation GA (NSTEMI) Patient Disposition: Admitted As Inpatient Print Language: Mosotho
[2024-11-24 22:53] VITALS: BP 171/71; PULSE 80; RESP 12; TEMP 36.8; O2SAT 97
[2024-11-24 22:55] LABS: MANUAL DIFF FLAG NO
[2024-11-24 22:56] LABS: Basophils Absolute Auto 0.1 X10*3/uL (0.0-0.2); Basophils Percent Auto 0.4 % (0-2); Eosinophils Absolute Auto 0.1 X10*3/uL (0.0-0.4); Eosinophils Percent Auto 0.9 % (0-4); Hematocrit 37.3 % (37.0-47.0); Hemoglobin 12.6 g/dl (12.0-16.0); Imm Gran Abs Auto 0.04 X10*3/uL (0.00-0.03); Imm Gran Pct Auto 0.3 % (0.0-0.4); Lymphocytes Absolute Auto 3.3 X10*3/uL (1.2-4.9); Lymphocytes Percent Auto 25.1 % (20-40); Mean Corpuscular HGB Conc 33.8 g/dl (31.0-35.0); Mean Corpuscular Hemoglobin 26.5 pg (27.0-33.0); Mean Corpuscular Volume 78.5 fL (80.0-98.0); Mean Platelet Volume 10.4 fL (9.4-12.3); Monocytes Absolute Auto 0.8 X10*3/uL (0.1-1.2); Monocytes Percent Auto 5.8 % (2-11); Neutrophils Absolute Auto 8.9 x10*3/uL (2.0-8.3); Neutrophils Percent Auto 67.5 % (45-73); Platelet Count 308 X10*3/uL (160-400); Red Blood Count 4.75 X10*6/uL (4.20-5.50); Red Cell Distribution Width 15.9 % (11.0-16.0); White Blood Count 13.2 X10*3/uL (4.8-10.8)
[2024-11-24 23:09] LABS: Alanine Aminotransferase 11 U/L (0-31); Albumin Level 3.9 g/dL (3.5-5.0); Alkaline Phosphatase 99 U/L (39-117); Anion Gap 11 (12-20); Aspartate Amino Transferase 21 U/L (5-31); Bilirubin Total 0.3 mg/dL (0.0-1.0); Blood Urea Nitrogen 15 mg/dL (9-16); Calcium 9.3 mg/dL (8.4-10.2); Carbon Dioxide 22 mmol/L (22-29); Chloride 110 mmol/L (96-108); Estimated Glomerular Filt Rate > 60; Glucose Random 98 mg/dL (60-115); Potassium 3.6 mmol/L (3.3-5.1); Sodium 139 mmol/L (135-145); Total Protein 7.4 g/dL (6.5-8.0)
[2024-11-24 23:19] LABS: Troponin-I High Sensitivity 100.7 ng/L (<3.5-17.0)
[2024-11-24] MEDS: Nitroglycerin 2 % Oint 1 GM Packet 1 INCH TRANSDERMA (23:57)
[2024-11-24] MEDS: Heparin Sodium,Porcine 5,000 UNIT/ML VIAL 5000 UNIT IVPUSH (23:58)
[2024-11-24 23:59] LABS: Appearance Urine Clear; Color Urine Yellow; Glucose Urine UA Negative (Negative); Leukocyte Esterase Urine Trace (Negative); Nitrite Urine Negative (Negative); PH 6.5 (5.0-9.0); UMIC TRIGGER UACC YES; Urine Blood Trace (Negative); Urine Ketones Negative (Negative); Urine Protein Negative (Neg-Trace)
[2024-11-25] VITALS (11 sets, daily range): BP systolic 135–160; BP diastolic 51–75; PULSE 58–78; RESP 14–20; TEMP 36–37.1; O2SAT 96–98
[2024-11-25 00:01] LABS: Bacteria Urine 2+ (None Seen); UACC Culture Trigger YES
[2024-11-25 00:08] LABS: Prothrombin Time 12.2 SEC (10.9-12.4)
[2024-11-25 00:10] LABS: C Reactive Protein 1.66 mg/dL (< or = 0.50); D Dimer High Sensitivity 269 NG/ML
[2024-11-25] MEDS: Clopidogrel Bisulfate 300 MG TABLET PO (00:27)
--- NOTE | 2024-11-25 01:27 | ECG_ITS ---
Test Reason : cp Blood Pressure : */* mmHG Vent. Rate : 76 BPM Atrial Rate : 76 BPM P-R Int : 142 ms QRS Dur : 88 ms QT Int : 408 ms P-R-T Axes : 59 27 39 degrees QTcB Int : 459 ms Normal sinus rhythm Nonspecific T wave abnormality Abnormal ECG When compared with ECG of 24-Nov-2024 22:16, No significant change was found Referred By: Nabeel Jackson Electronically Signed By: EMILY STRINGER
[2024-11-25 01:50] LABS: Troponin-I High Sensitivity 103.4 ng/L (<3.5-17.0)
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
[2024-11-25 02:48] LABS: Cholesterol 181 mg/dL (<200); HDL Cholesterol 35 mg/dL (>40); LDL Cholesterol Calculated 80 mg/dL (<100); Magnesium 1.8 mg/dL (1.6-2.6); Triglycerides 330 mg/dL (<150)
[2024-11-25] MEDS: Heparin Sodium,Porcine/1/2NS 25,000 UNIT/250 ML IV.SOLN 9.2 UNIT IVCONT (02:58)
[2024-11-25] MEDS: Metoprolol Tartrate 25 MG TABLET PO ×3 (03:14→21:08)
[2024-11-25] MEDS: cefTRIAXone sodium 1 GM VIAL IVPUSH (03:20)
[2024-11-25 05:39] LABS: MANUAL DIFF FLAG NO
[2024-11-25 05:40] LABS: Basophils Percent Auto 0.4 % (0-2); Eosinophils Absolute Auto 0.1 X10*3/uL (0.0-0.4); Hematocrit 37.3 % (37.0-47.0); Hemoglobin 12.3 g/dl (12.0-16.0); Imm Gran Abs Auto 0.05 X10*3/uL (0.00-0.03); Imm Gran Pct Auto 0.5 % (0.0-0.4); Lymphocytes Percent Auto 28.8 % (20-40); Mean Corpuscular Hemoglobin 26.3 pg (27.0-33.0); Mean Corpuscular Volume 79.7 fL (80.0-98.0); Mean Platelet Volume 10.4 fL (9.4-12.3); Monocytes Absolute Auto 0.6 X10*3/uL (0.1-1.2); Monocytes Percent Auto 5.5 % (2-11); Neutrophils Absolute Auto 6.7 x10*3/uL (2.0-8.3); Neutrophils Percent Auto 63.8 % (45-73); Platelet Count 278 X10*3/uL (160-400); Red Blood Count 4.68 X10*6/uL (4.20-5.50); White Blood Count 10.5 X10*3/uL (4.8-10.8)
[2024-11-25 05:41] LABS: Hemoglobin 12.1 g/dl (12.0-16.0); Mean Corpuscular HGB Conc 31.8 g/dl (31.0-35.0); Mean Corpuscular Hemoglobin 25.8 pg (27.0-33.0); Mean Platelet Volume 10.7 fL (9.4-12.3); Platelet Count 299 X10*3/uL (160-400); Red Blood Count 4.69 X10*6/uL (4.20-5.50); Red Cell Distribution Width 16.1 % (11.0-16.0); White Blood Count 10.7 X10*3/uL (4.8-10.8)
[2024-11-25 05:57] LABS: Alanine Aminotransferase 9 U/L (0-31); Albumin Level 3.7 g/dL (3.5-5.0); Alkaline Phosphatase 101 U/L (39-117); Anion Gap 15 (12-20); Aspartate Amino Transferase 21 U/L (5-31); Bilirubin Total 0.2 mg/dL (0.0-1.0); Blood Urea Nitrogen 14 mg/dL (9-16); Calcium 9.2 mg/dL (8.4-10.2); Carbon Dioxide 22 mmol/L (22-29); Chloride 108 mmol/L (96-108); Creatinine Clr Calc Pharmacy 85.1; Estimated Glomerular Filt Rate > 60; Glucose Random 118 mg/dL (60-115); Sodium 141 mmol/L (135-145); Total Protein 7.1 g/dL (6.5-8.0)
[2024-11-25 06:01] LABS: B Type Natriuretic Peptide 12 pg/mL (<100)
[2024-11-25 06:06] LABS: Troponin-I High Sensitivity 78.2 ng/L (<3.5-17.0)
[2024-11-25 07:02] LABS: Estimated Average Glucose 100 mg/dL; Hemoglobin A1C 107.2103 umol/L; Hemoglobin A1c % 5.1 % (<6.0); Total Hemoglobin (HGBA1C) 3334.3281 umol/L
[2024-11-25] MEDS: Atorvastatin Calcium 40 MG TABLET PO (08:28)
[2024-11-25] MEDS: Clopidogrel Bisulfate 75 MG TABLET PO (08:30)
[2024-11-25 09:11] LABS: PTT Heparin Drip 45.1 SEC (53-77.9)
[2024-11-25] MEDS: Heparin Sodium,Porcine 5,000 UNIT/ML VIAL 3100 UNIT IVPUSH ×2 (09:26→23:26)
[2024-11-25] MEDS: Heparin Sodium,Porcine/1/2NS 25,000 UNIT/250 ML IV.SOLN 10.73 UNIT IVCONT (09:27)
--- NOTE | 2024-11-25 09:37 | PHA.MEDREC ---
Addendum entered by Latoya Summers RPh 11/25/24 10:06: [facility] reviewed Original Note: Pharmacy Consult ? Medication Reconciliation Pharmacy has completed the medication reconciliation. Spoke to pt to confirm meds. Pt reports they have Chantix at home, but have not started yet. Leaving off med rec.
--- NOTE | 2024-11-25 09:43 | PM.EVENT ---
Event Note Date of Service: 11/25/24 Event Note: Seen and evaluated this morning feels better. no recurrence of chest pain Trop trending down continue heparin drip Plavix, Metoprolol, Atorvastatin started Continue home dose Lisinopril Echo tomorrow discussed the need of cardiac angiogram. she will speak to family and decide. Time Spent With Patient Time: Total time managing care of this patient today ____ minutes.
--- NOTE | 2024-11-25 10:02 | P.CONCA_ITS ---
History of Present Illness History of Present Illness Date of Service: 11/25/24 Chief complaint: Chest Pain Narrative: This is a cardiology consultation regarding chest pains. Patient does not have any previous cardiac history. Apparently, she received some bad news about her brother and after that, she developed chest discomfort. This was also going down into the left arm. Blood pressure was checked at home and that was quite high at 180/90 mm Hg. Then patient came to the ER. She has not had any prior cardiac issues including coronary artery disease or myocardial infarction or cardiomyopathy or in fact any other cardiac concerns. She is on lisinopril for high blood pressure. Currently, not having anymore chest discomfort. Review of Systems 2 Review of Systems: Yes all other systems are reviewed and are negative Constitutional: Constitutional: Reports as per HPI and Reports no additional constitutional complaints Eyes: Eyes: Reports as per HPI and Denies no additional eye complaints ENT: Denies system reviewed and no additional complaints, except as documented and Reports as per HPI Cardiovascular: Cardiovascular: Reports as per HPI, Reports no additional cardiovascular complaints, Denies acrocyanosis, Denies cool extremities, Denies chest pain, Denies leg edema, Denies lightheadedness, Denies palpitations and Denies dyspnea Respiratory: Respiratory: Reports as per HPI, Denies no additional respiratory complaints and Denies dyspnea Gastrointestinal: Gastrointestinal: Reports as per HPI and Denies no additional gastrointestinal complaints Genitourinary: Genitourinary: Reports as per HPI Musculoskeletal: Musculoskeletal: Reports no additional musculoskeletal complaints and Reports as per HPI Integumentary/Breasts: Skin/Breast: Reports system reviewed and no additional complaints, except as docu Neurologic: Reports system reviewed and no additional complaints, except as documented and Reports as per HPI Psychiatric: Psychiatric: Reports no additional psychiatric complaints and Reports as per HPI Endocrine: Endocrine: Reports no additional endocrine complaints, Reports as per HPI and Denies palpitations Hematologic/Lymphatic: Hematologic/Lymphatic: Reports no additional hematologic/lymphatic complaints and Reports as per HPI Allergic/Immunologic: Allergic/Immunologic: Reports no additional allergic/immunologic complaints and Reports as per HPI [facility] Past Medical History Medical History Anemia Blood pressure elevated without history of HTN Iron deficiency anemia Sprain of right shoulder Cough Mycoplasma pneumonia Hypercholesterolemia Renal calculus Vitamin D deficiency Tobacco abuse Obesity (BMI 30-39.9) Migraine Family History Family History Father Alcohol abuse Mother No problems noted. Brother Alcohol abuse Brother No problems noted. Sister No problems noted. Sister No problems noted. Daughter No problems noted. Daughter No problems noted. Son No problems noted. Social History Social History Housing: Apartment Alcohol intake: current Alcohol intake frequency: does not drink Comment: 2-3 x a year- 3 drinks Patient Tobacco Use Status: Current everyday Tobacco user Tobacco use type: Cigarette Cigarettes Per Day: 15 Smoked in Last 30 Days: Yes e-Cigarette/Vaping Use: Never Used Second Hand Smoke Exposure: Yes Use of substances other than those prescribed or required for medical reasons: No Advance Directives: No Advance Directives Information Provided: No Do you have a plan to hurt others: No Plan Nutrition Risks: No Nutritional Risk service: No Current occupational status: unemployed Cognitive needs: No Hearing needs: No Vision needs: Yes Travel History Ebola Risk: Travel/Contact With Anyone From Affected Area/s: No Has Patient Experienced Ebola Symptoms: No Meds Allergies Allergy/AdvReac Type Severity Reaction Status Date / Time aspirin [ASPIRIN] Allergy Unknown RASH Verified 11/24/24 22:23 Active Medications: Current Medications Acetaminophen (Acetaminophen 325 Mg Tablet) 650 mg PO Q6H PRN PRN Reason: Pain, Mild 1-3,fever,headache Atorvastatin Calcium (Atorvastatin Calcium 40 Mg Tablet) 40 mg PO DAILY [facility] Last Admin: 11/25/24 08:28 Dose: 40 mg Ceftriaxone Sodium (Ceftriaxone Sodium 1 Gm Vial) 1 gm IVPUSH Q24H [facility] Last Admin: 11/25/24 03:20 Dose: 1 gm Clopidogrel Bisulfate (Clopidogrel Bisulfate 75 Mg Tablet) 75 mg PO DAILY [facility] Last Admin: 11/25/24 08:30 Dose: 75 mg Heparin Sodium (Porcine) (Heparin Sodium,Porcine 5,000 Unit/Ml Vial) 3,100 unit 40 unit/kg (3100 unit) IVPUSH PROTOCOL BOLUS PRN; Protocol PRN Reason: 40 unit/kg - Heparin Protocol Last Admin: 11/25/24 09:26 Dose: 3,100 unit Heparin Sodium (Porcine) (Heparin Sodium,Porcine 5,000 Unit/Ml Vial) 6,100 unit 80 unit/kg (6100 unit) IVPUSH PROTOCOL BOLUS PRN; Protocol PRN Reason: 80 unit/kg - Heparin Protocol Heparin Sodium/Sodium Chloride (Heparin Sodium,Porcine/1/2ns) 25,000 unit in 250 mls @ 0 mls/hr IVCONT .Q0M [facility]; Protocol Last Admin: 11/25/24 09:27 Dose: 14 units/kg/hr, 10.73 mls/hr Magnesium Hydroxide (Milk Of Magnesia 30 Ml Oral.Susp) 30 ml PO DAILY PRN PRN Reason: Constipation Melatonin (Melatonin 3 Mg Tablet) 6 mg PO BEDTIME PRN PRN Reason: Insomnia Metoprolol Tartrate (Metoprolol Tartrate 25 Mg Tablet) 25 mg PO BID [facility]; Protocol Last Admin: 11/25/24 08:28 Dose: 25 mg Nitroglycerin (Nitroglycerin 0.4 Mg Tab.Subl) 0.4 mg SUBLINGUAL Q5MX3 PRN PRN Reason: Chest Pain Ondansetron HCl (Ondansetron Hcl 4 Mg/2 Ml Vial) 4 mg IVPUSH Q8H PRN PRN Reason: Nausea and Vomiting Polyethylene Glycol (Polyethylene Glycol 3350 17 Gm Powd.Pack) 17 gm PO DAILY PRN PRN Reason: Constipation Senna (Sennosides 8.6 Mg Tablet) 17.2 mg PO BEDTIME [facility] Sodium Chloride (0.9 % Sodium Chloride Flush 3 Ml Syringe) 3 ml IVFLUSH QSHIFT [facility] Last Admin: 11/25/24 08:30 Dose: Not Given Home Medications ?Medication ?Instructions ?Recorded ?Confirmed ?Last Taken ?Type meloxicam 7.5 mg tablet 7.5 mg PO DAILY PRN Pain 11/25/24 11/25/24 Unknown History Physical Exam 2 Vital Signs: Vital Signs: Last Vital Signs Temp 98.2 F 11/25/24 06:22 Pulse 64 11/25/24 08:28 Resp 17 11/25/24 06:22 BP 144/72 H 11/25/24 08:28 Pulse Ox 96 11/25/24 06:22 O2 Del Method Room Air 11/25/24 06:22 BMI result Body Mass Index 34.1 Const: General: comfortable and no acute distress O rientation/consciousness: patient oriented x3 HEENT: Other: Unremarkable Head: Yes normal to inspection Neck: Neck: Yes normal visual inspection Chest: Chest palpation & inspection: normal inspection of the chest Resp: Auscultation: clear to auscultation bilaterally Cardio: Palpation: normal PMI Heart sounds: S1 normal heart sound present, S2 normal heart sound present, no gallops, no murmurs and no rubs GI: Palpation (GI): Soft to palpation Back/Spine/Pelvis: Other: unremarkable Skin: General skin exam: no rashes or lesions noted Neuro: General: patient oriented x3 Extrem: General: Yes normal to inspection Psych: Mental Status: mental status grossly normal Objective Labs and Meds 11/25/24 05:15 11/25/24 05:15 Lab results: Laboratory Results - last 24 hr 11/24/24 11/24/24 11/25/24 22:50 23:51 01:00 WBC 13.2 H RBC 4.75 Hgb 12.6 Hct 37.3 MCV 78.5 L MCH 26.5 L MCHC 33.8 RDW 15.9 Plt Count 308 MPV 10.4 Immature Gran % (Auto) 0.3 Neut % (Auto) 67.5 Lymph % (Auto) 25.1 [place] % (Auto) 5.8 Eos % (Auto) 0.9 Baso % (Auto) 0.4 Lymph # (Auto) 3.3 [place] # (Auto) 0.8 Eos # (Auto) 0.1 Baso # (Auto) 0.1 Abs Immat Gran (auto) 0.04 H Absolute Neuts (auto) 8.9 H Absolute Nucleated RBC 0.000 Nucleated RBC % (auto) 0.0 PT 12.2 INR 1.0 APTT 32.0 aPTT Heparin Protocol D-Dimer High Sensitivty 269 Sodium 139 Potassium 3.6 Chloride 110 H Carbon Dioxide 22 Anion Gap 11 L BUN 15 Creatinine 0.85 Estim Creat Clear Calc 73.0 Estimated GFR > 60 Random Glucose 98 Estimat Average Glucose 100 Hemoglobin A1c % 5.1 Calcium 9.3 Magnesium 1.8 Total Bilirubin 0.3 AST 21 ALT 11 Alkaline Phosphatase 99 Total Creatine Kinase 98 Troponin I High Sens 100.7 H* 103.4 H* C-Reactive Protein 1.66 H B-Natriuretic Peptide Total Protein 7.4 Albumin 3.9 Triglycerides 330 H Cholesterol 181 LDL Cholesterol, Calc 80 HDL Cholesterol 35 L Urine Color Yellow Urine Appearance Clear Urine pH 6.5 Ur Specific [place] 1.020 Urine Protein Negative Urine Glucose (UA) Negative Urine Ketones Negative Urine Blood Trace H Urine Nitrite Negative Ur Leukocyte Esterase Trace H Urine RBC 3-5 H Urine WBC 6-10 H Ur Squamous Epith Cells 6-10 Urine Bacteria 2+ Hyaline Casts 3-5 11/25/24 11/25/24 11/25/24 05:15 05:15 05:15 WBC 10.7 10.5 RBC 4.69 4.68 Hgb 12.1 Hct MCV MCH MCHC RDW Plt Count MPV Immature Gran % (Auto) Neut % (Auto) Lymph % (Auto) [place] % (Auto) Eos % (Auto) Baso % (Auto) Lymph # (Auto) [place] # (Auto) Eos # (Auto) Baso # (Auto) Abs Immat Gran (auto) Absolute Neuts (auto) Absolute Nucleated RBC Nucleated RBC % (auto) PT INR APTT aPTT Heparin Protocol D-Dimer High Sensitivty Sodium Potassium Chloride Carbon Dioxide Anion Gap BUN Creatinine Estim Creat Clear Calc Estimated GFR Random Glucose Estimat Average Glucose Hemoglobin A1c % Calcium Magnesium Total Bilirubin AST ALT Alkaline Phosphatase Total Creatine Kinase Troponin I High Sens C-Reactive Protein B-Natriuretic Peptide Total Protein Albumin Triglycerides Cholesterol LDL Cholesterol, Calc HDL Cholesterol Urine Color Urine Appearance Urine pH Ur Specific [place] Urine Protein Urine Glucose (UA) Urine Ketones Urine Blood Urine Nitrite Ur Leukocyte Esterase Urine RBC Urine WBC Ur Squamous Epith Cells Urine Bacteria Hyaline Casts 11/25/24 11/25/24 11/25/24 05:15 05:15 05:15 WBC RBC Hgb 12.3 Hct 38.0 37.3 MCV 81.0 79.7 L MCH 25.8 L MCHC RDW Plt Count MPV Immature Gran % (Auto) Neut % (Auto) Lymph % (Auto) [place] % (Auto) Eos % (Auto) Baso % (Auto) Lymph # (Auto) [place] # (Auto) Eos # (Auto) Baso # (Auto) Abs Immat Gran (auto) Absolute Neuts (auto) Absolute Nucleated RBC Nucleated RBC % (auto) PT INR APTT aPTT Heparin Protocol D-Dimer High Sensitivty Sodium Potassium Chloride Carbon Dioxide Anion Gap BUN Creatinine Estim Creat Clear Calc Estimated GFR Random Glucose Estimat Average Glucose Hemoglobin A1c % Calcium Magnesium Total Bilirubin AST ALT Alkaline Phosphatase Total Creatine Kinase Troponin I High Sens C-Reactive Protein B-Natriuretic Peptide Total Protein Albumin Triglycerides Cholesterol LDL Cholesterol, Calc HDL Cholesterol Urine Color Urine Appearance Urine pH Ur Specific [place] Urine Protein Urine Glucose (UA) Urine Ketones Urine Blood Urine Nitrite Ur Leukocyte Esterase Urine RBC Urine WBC Ur Squamous Epith Cells Urine Bacteria Hyaline Casts 11/25/24 11/25/24 11/25/24 05:15 05:15 05:15 WBC RBC Hgb Hct MCV MCH 26.3 L MCHC 31.8 33.0 RDW 16.1 H 16.0 Plt Count 299 MPV Immature Gran % (Auto) Neut % (Auto) Lymph % (Auto) [place] % (Auto) Eos % (Auto) Baso % (Auto) Lymph # (Auto) [place] # (Auto) Eos # (Auto) Baso # (Auto) Abs Immat Gran (auto) Absolute Neuts (auto) Absolute Nucleated RBC Nucleated RBC % (auto) PT INR APTT aPTT Heparin Protocol D-Dimer High Sensitivty Sodium Potassium Chloride Carbon Dioxide Anion Gap BUN Creatinine Estim Creat Clear Calc Estimated GFR Random Glucose Estimat Average Glucose Hemoglobin A1c % Calcium Magnesium Total Bilirubin AST ALT Alkaline Phosphatase Total Creatine Kinase Troponin I High Sens C-Reactive Protein B-Natriuretic Peptide Total Protein Albumin Triglycerides Cholesterol LDL Cholesterol, Calc HDL Cholesterol Urine Color Urine Appearance Urine pH Ur Specific [place] Urine Protein Urine Glucose (UA) Urine Ketones Urine Blood Urine Nitrite Ur Leukocyte Esterase Urine RBC Urine WBC Ur Squamous Epith Cells Urine Bacteria Hyaline Casts 11/25/24 11/25/24 11/25/24 05:15 05:15 05:15 WBC RBC Hgb Hct MCV MCH MCHC RDW Plt Count 278 MPV 10.7 10.4 Immature Gran % (Auto) 0.5 H Neut % (Auto) 63.8 Lymph % (Auto) 28.8 [place] % (Auto) 5.5 Eos % (Auto) 1.0 Baso % (Auto) 0.4 Lymph # (Auto) 3.0 [place] # (Auto) 0.6 Eos # (Auto) 0.1 Baso # (Auto) 0.0 Abs Immat Gran (auto) 0.05 H Absolute Neuts (auto) 6.7 Absolute Nucleated RBC 0.000 0.000 Nucleated RBC % (auto) 0.0 PT INR APTT aPTT Heparin Protocol D-Dimer High Sensitivty Sodium Potassium Chloride Carbon Dioxide Anion Gap BUN Creatinine Estim Creat Clear Calc Estimated GFR Random Glucose Estimat Average Glucose Hemoglobin A1c % Calcium Magnesium Total Bilirubin AST ALT Alkaline Phosphatase Total Creatine Kinase Troponin I High Sens C-Reactive Protein B-Natriuretic Peptide Total Protein Albumin Triglycerides Cholesterol LDL Cholesterol, Calc HDL Cholesterol Urine Color Urine Appearance Urine pH Ur Specific [place] Urine Protein Urine Glucose (UA) Urine Ketones Urine Blood Urine Nitrite Ur Leukocyte Esterase Urine RBC Urine WBC Ur Squamous Epith Cells Urine Bacteria Hyaline Casts 11/25/24 11/25/24 05:15 08:52 WBC RBC Hgb Hct MCV MCH MCHC RDW Plt Count MPV Immature Gran % (Auto) Neut % (Auto) Lymph % (Auto) [place] % (Auto) Eos % (Auto) Baso % (Auto) Lymph # (Auto) [place] # (Auto) Eos # (Auto) Baso # (Auto) Abs Immat Gran (auto) Absolute Neuts (auto) Absolute Nucleated RBC Nucleated RBC % (auto) 0.0 PT INR APTT aPTT Heparin Protocol 45.1 L D-Dimer High Sensitivty Sodium 141 Potassium 4.0 Chloride 108 Carbon Dioxide 22 Anion Gap 15 BUN 14 Creatinine 0.73 Estim Creat Clear Calc 85.1 Estimated GFR > 60 Random Glucose 118 H Estimat Average Glucose Hemoglobin A1c % Calcium 9.2 Magnesium Total Bilirubin 0.2 AST 21 ALT 9 Alkaline Phosphatase 101 Total Creatine Kinase Troponin I High Sens 78.2 H* C-Reactive Protein B-Natriuretic Peptide 12 Total Protein 7.1 Albumin 3.7 Triglycerides Cholesterol LDL Cholesterol, Calc HDL Cholesterol Urine Color Urine Appearance Urine pH Ur Specific [place] Urine Protein Urine Glucose (UA) Urine Ketones Urine Blood Urine Nitrite Ur Leukocyte Esterase Urine RBC Urine WBC Ur Squamous Epith Cells Urine Bacteria Hyaline Casts ECG Interpretation: EKG with underlying sinus rhythm at 76/Min; nonspecific ST-T changes. In the earlier EKG, suggestion of T inversions in the anterior leads. Nonspecific changes as well. Assessment and Plan (1) Non-ST elevation TN (NSTEMI): Status: Acute Plan High sensitivity troponin levels are 100, 103 and 78. Overall, could be NSTEMI versus stress-induced cardiomyopathy. Keep her on IV heparin drip, Plavix, statins, beta-blockers. History of allergy to aspirin. Echocardiogram tomorrow. Ideally, diagnostic catheterization but she is not agreeable at this time. She states she would rather not have it. Explain the pros and cons but she seems overwhelmed and hence we will follow-up on this tomorrow. Discussed with Dr. Wan. Procedures Date of Service Date of Service: 11/25/24
--- NOTE | 2024-11-25 10:28 | MHC.CM.PN ---
Pt self-care, lives at home with her daughter. Pts daughter will transport her home at discharge. Education provided on HCP, pt declined to complete one at this time. PCP: Dr. Savage Po
[2024-11-25] MEDS: lisinopriL 10 MG TABLET 30 MG PO (14:02)
[2024-11-25 16:14] LABS: PTT Heparin Drip 61.9 SEC (53-77.9)
[2024-11-25] MEDS: 0.9 % Sodium Chloride Flush 3 ML SYRINGE IVFLUSH (16:40)
[2024-11-25 22:57] LABS: PTT Heparin Drip 50.8 SEC (53-77.9)
[2024-11-26] VITALS (7 sets, daily range): BP systolic 129–145; BP diastolic 60–65; PULSE 54–71; RESP 17–20; TEMP 35.9–36.4; O2SAT 97–98; BMI 35.7
--- NOTE | 2024-11-26 | ECG_ITS ---
Test Reason : NSTEMI Blood Pressure : */* mmHG Vent. Rate : 63 BPM Atrial Rate : 63 BPM P-R Int : 144 ms QRS Dur : 84 ms QT Int : 400 ms P-R-T Axes : 60 32 31 degrees QTcB Int : 409 ms Normal sinus rhythm Nonspecific T wave abnormality Abnormal ECG When compared with ECG of 26-Nov-2024 10:29, No significant change was found Referred By: Jc Corado Electronically Signed By: Jc Corado
[2024-11-26] MEDS: Heparin Sodium,Porcine/1/2NS 25,000 UNIT/250 ML IV.SOLN 12.27 UNIT IVCONT ×2 (01:20→14:26)
[2024-11-26] MEDS: cefTRIAXone sodium 1 GM VIAL IVPUSH (03:13)
--- NOTE | 2024-11-26 05:00 | ECG_ITS ---
Test Reason : REPEAT ABNORMAL EKG PER DR ORDER Blood Pressure : */* mmHG Vent. Rate : 48 BPM Atrial Rate : 48 BPM P-R Int : 152 ms QRS Dur : 88 ms QT Int : 462 ms P-R-T Axes : 59 13 17 degrees QTcB Int : 412 ms Sinus bradycardia Nonspecific T wave abnormality Abnormal ECG When compared with ECG of 25-Nov-2024 01:30, Vent. rate has decreased by 28 bpm Referred By: Liz Ann Electronically Signed By: Jc Corado
[2024-11-26 05:23] LABS: MANUAL DIFF FLAG NO
[2024-11-26 05:26] LABS: Basophils Absolute Auto 0.1 X10*3/uL (0.0-0.2); Basophils Percent Auto 0.5 % (0-2); Eosinophils Absolute Auto 0.1 X10*3/uL (0.0-0.4); Eosinophils Percent Auto 1.2 % (0-4); Hematocrit 38.2 % (37.0-47.0); Hemoglobin 12.5 g/dl (12.0-16.0); Imm Gran Abs Auto 0.04 X10*3/uL (0.00-0.03); Imm Gran Pct Auto 0.4 % (0.0-0.4); Lymphocytes Absolute Auto 2.8 X10*3/uL (1.2-4.9); Lymphocytes Percent Auto 28.7 % (20-40); Mean Corpuscular HGB Conc 32.7 g/dl (31.0-35.0); Mean Corpuscular Hemoglobin 26.1 pg (27.0-33.0); Mean Corpuscular Volume 79.7 fL (80.0-98.0); Mean Platelet Volume 10.6 fL (9.4-12.3); Monocytes Absolute Auto 0.8 X10*3/uL (0.1-1.2); Monocytes Percent Auto 8.1 % (2-11); Neutrophils Absolute Auto 5.9 x10*3/uL (2.0-8.3); Neutrophils Percent Auto 61.1 % (45-73); Platelet Count 276 X10*3/uL (160-400); Red Blood Count 4.79 X10*6/uL (4.20-5.50); Red Cell Distribution Width 15.9 % (11.0-16.0); White Blood Count 9.7 X10*3/uL (4.8-10.8)
[2024-11-26 05:32] LABS: Prothrombin Time 11.5 SEC (10.9-12.4)
[2024-11-26 05:35] LABS: PTT Heparin Drip 73.2 SEC (53-77.9)
[2024-11-26 05:38] LABS: Anion Gap 12 (12-20); Blood Urea Nitrogen 13 mg/dL (9-16); Calcium 9.4 mg/dL (8.4-10.2); Carbon Dioxide 23 mmol/L (22-29); Chloride 110 mmol/L (96-108); Creatinine Clr Calc Pharmacy 78.5; Estimated Glomerular Filt Rate > 60; Glucose Random 114 mg/dL (60-115); Sodium 141 mmol/L (135-145)
--- NOTE | 2024-11-26 07:00 | CA_ITS ---
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 There is mildly increased left ventricular wall thickness. The visually estimated ejection fraction is between 55-60%. There is no evidence of regional wall motion abnormalities. Diastolic function is normal for age. - Normal right ventricular cavity size and systolic function. Findings Left Ventricle Normal left ventricular size and systolic function. There is mildly increased left ventricular wall thickness. The visually estimated ejection fraction is between 55-60%. There is no evidence of regional wall motion abnormalities. Diastolic function is normal for age. Right Ventricle Normal right ventricular cavity size and systolic function. Atria The left atrium is normal in size. The right atrium is normal in size. Aortic Valve Normal aortic valve structure and function. There is no aortic valve stenosis. There is no aortic valve regurgitation. Mitral Valve The mitral valve appears normal. There is no mitral valve regurgitation. There is no mitral valve stenosis. Pulmonic Valve The pulmonic valve is normal. There is no pulmonic valve regurgitation. Tricuspid Valve Normal tricuspid valve structure. There is no tricuspid valve regurgitation. Normal right atrial pressure. There is no evidence of pulmonary hypertension. Great Vessels All visible segments of the aorta are normal in size. The visualized portions of the pulmonary artery and branches are normal. Venous The inferior vena cava is normal in size and collapses greater than 50% with inspiration. Pericardium/Pleural There is no evidence of pericardial effusion. Prior Study Comparison No prior study available for comparison. Measurements 2D Linear Measurements IVSd: 0.92 0.6-0.9/0.6-1.0 cm LVIDd: 5.00 3.9-5.3/4.2-5.9 cm LVIDd Index: 2.86 2.4-3.2/2.2-3.1 cm/m2 LVIDs: 3.36 2.0-3.6 cm LVPWd: 0.94 0.7-1.1 cm LA Diam: 3.60 2.7-3.8/3.0-4.0 cm LAIDs Index: 2.06 1.5-2.3 cm/m2 LV Mass: 205.60 67-162/88-224 g LV Mass Index: 117.48 43-95/49-115 g/m2 LVOT Diam: 2.10 3.0+(-)1.3 cm Mitral Valve MV Pk E: 0.99 MV PK A: 0.66 MV Decel Time: 258.00 E/A: 1.50 E'Lateral: 11.40 E'Medial: 9.68 E/E' Med: 10.30 E/E' Lat: 8.70 PHT: 76.00 MVA PHT: 2.89 Decel Isabella: 3.85 Aortic Valve AoV Pk Darwin: 1.40 AoV Mn Darwin: 0.94 AoV VTI: 0.32 AoV Pk Grad: 8.00 Aov Mn Grad: 5.00 EULOGIO Cont.VTI: 1.44 LVOT LVOT Pk Darwin: 0.97 LVOT Mn Darwin: 0.69 LVOT VTI: 0.21 LVOT Pk Grad: 4.00 LVOT Mn Grad: 2.00 LVOT Diam: 2.10 LVOT Area: 3.46 Diastolic Function MV Pk E: 0.99 MV Pk A: 0.66 E/A: 1.50 E'Medial: 9.68 E/E' Med: 10.30 E' Laterial: 11.40 E/E' Lat: 8.70 Right Ventricle TAPSE (mm): 27.40 TVS' Darwin: 11.70 Tricuspid Valve TR Pk Darwin: 1.74 TR Pk Grad: 12.00 RA Press: 3.00 RVSP: 15.00 Great Vessels Aorta Sinus of Valsalva: 2.40 2.0-3.5 cm Ao Asc: 2.80 2.1-3.4 cm Pulmonary Valve PV Pk [place]: 1.21 Peak PV Grad: 6.00 Updated in Other Vendor System with Status of Final Jc Corado MD electronically signed on 11/26/2024 5:27:00 PM with status of Final
[2024-11-26] MEDS: Cholecalciferol (Vitamin D3) 25 MCG TABLET 50 MCG PO (08:42)
[2024-11-26] MEDS: Metoprolol Tartrate 25 MG TABLET PO ×2 (08:42→21:45)
[2024-11-26] MEDS: Atorvastatin Calcium 40 MG TABLET PO (08:42)
[2024-11-26] MEDS: Clopidogrel Bisulfate 75 MG TABLET PO (08:42)
[2024-11-26] MEDS: 0.9 % Sodium Chloride Flush 3 ML SYRINGE IVFLUSH ×2 (08:42→21:42)
[2024-11-26] MEDS: lisinopriL 10 MG TABLET 30 MG PO (08:42)
--- NOTE | 2024-11-26 10:39 | MHC.CM.PN ---
PER MD ROUNDS, PT NOT EXPECTED TO DC TODAY DCP: HOME VIA FAMILY TRANSPORT
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
[2024-11-26 11:30] LABS: PTT Heparin Drip 63.1 SEC (53-77.9)
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
[2024-11-27 03:03] VITALS: BP 136/61; PULSE 66; RESP 18; TEMP 36.4; O2SAT 96
[2024-11-27 05:52] VITALS: BMI 36.8
[2024-11-27 07:30] VITALS: BP 133/65; PULSE 54; RESP 20; TEMP 36.6; O2SAT 97
[2024-11-27] MEDS: Metoprolol Tartrate 25 MG TABLET PO (08:52)
[2024-11-27] MEDS: 0.9 % Sodium Chloride Flush 3 ML SYRINGE IVFLUSH (08:52)
[2024-11-27] MEDS: Clopidogrel Bisulfate 75 MG TABLET PO (08:52)
[2024-11-27] MEDS: Cholecalciferol (Vitamin D3) 25 MCG TABLET 50 MCG PO (08:52)
[2024-11-27] MEDS: lisinopriL 10 MG TABLET 30 MG PO (08:52)
[2024-11-27] MEDS: Atorvastatin Calcium 40 MG TABLET PO (08:52)
[2024-11-27 11:14] VITALS: BP 132/68; PULSE 66; RESP 20; TEMP 36.4; O2SAT 98
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
--- NOTE | 2024-11-27 14:17 | MHC.CM.PN ---
Pt is medically cleared for discharge home self-care, pts daughter to transport her home.
--- NOTE | 2024-11-28 13:54 | P.CDIM_ITS ---
PROVIDER RESPONSE TEXT: To clarify, the appropriate diagnosis supported by the clinical indicators: NSTEMI: likely demand ischemia QUERY TEXT: PHYSICIAN'S DOCUMENTATION REQUEST Date of Query: 11/27/2024 12:28 PM EDT Patient Name: Lizbeth Burton Admit Date: 11/25/2024 Dear Jovita Wan MD, A review of the medical record indicates additional documentation may be needed. Please review below and update the documentation accordingly. Clinical Indicators Chest pain, pressure-like feeling staying in the mid chest also complaining of left arm pain. Troponins 100.7 103.4. Heparin infusion and received a Plavix load of 300 mg. Received Metoprolol tartrate 25mg. Nitro paste 2% to the chest. Cardiomegaly noted on chest x-ray. Please clarify any further specifics to the documented NSTEMI? NSTEMI due to demand ischemia, Type 2, other specified NSTEMI unable to determine further Other (explain) Clinically unable to determine (explain) Thank you, Shavon Stringer, CCS, CDIS Use of terms such as suspected, likely, concern for, or probable (associated with a specific diagnosi s that is being evaluated, monitored, or treated as if it exists) are acceptable and can be coded in the inpatient se tting, when documented at the time of discharge. Please use your independent medical judgment in providing your response. THIS QUERY IS PART OF THE PERMANENT MEDICAL RECORD
== END 2024-11-27 15:36 | disposition home or self-care (01) | DRG 190 ==
LOC: HO.ED 11-25 01:39 → HO.EDOVER 11-25 02:46 → HO.IMC 11-25 19:56
PROVIDERS: Hospitalist; Admitting Provider Nurse Practitioner Family; Emergency Provider Internal Medicine; PCP Internal Medicine; Visit Provider Student in an Organized Health Care Education/Training Program
DX: I21.A1 Myocardial infarction type 2 (principal); E66.9 Obesity, unspecified; E78.5 Hyperlipidemia, unspecified; F17.210 Nicotine dependence, cigarettes, uncomplicated; I10 Essential (primary) hypertension; M54.59 Other low back pain; G89.21 Chronic pain due to trauma; V49.9XXS Car occupant (driver) (passenger) injured in unspecified traffic accident, sequela; Z68.35 Body mass index [BMI] 35.0-35.9, adult; Z71.6 Tobacco abuse counseling; Z79.899 Other long term (current) drug therapy
CPT/HCPCS: 36415; 71046; 80048; 80053; 80061; 81001; 82550; 83036; 83735; 83880; 84484; 85025; 85027; 85379; 85610; 85730; 86140; 87086; 93005; 93306; 99285; J0696; J1644; Q9957

== ENCOUNTER → 2024-11-24 22:16 | Outpatient (BNV) | payer OTHER, SELFPAY | PROVIDERS: Admitting Provider Nurse Practitioner Family; Emergency Provider Internal Medicine; PCP Internal Medicine; Visit Provider Internal Medicine | DX: R94.31 Abnormal electrocardiogram [ECG] [EKG] (principal); R07.9 Chest pain, unspecified | CPT/HCPCS: 93010 ==

== ENCOUNTER → 2024-11-24 22:30 | Outpatient (BNV) | payer OTHER, SELFPAY | PROVIDERS: Emergency Provider Internal Medicine; PCP Internal Medicine; Visit Provider Radiology Diagnostic Radiology | DX: I51.7 Cardiomegaly (principal) | CPT/HCPCS: 71046 ==

== ENCOUNTER 2024-11-25 02:30 | Outpatient (BNV) | payer OTHER, SELFPAY | END 2024-11-26 07:00 | PROVIDERS: Admitting Provider Nurse Practitioner Family; Emergency Provider Internal Medicine; PCP Internal Medicine; Visit Provider Internal Medicine Cardiovascular Disease | DX: I21.4 Non-ST elevation (NSTEMI) myocardial infarction (principal) | CPT/HCPCS: 93010; 93306 ==

== ENCOUNTER → 2024-11-25 02:30 | Outpatient (BNV) | payer OTHER, SELFPAY | PROVIDERS: Admitting Provider Nurse Practitioner Family; Emergency Provider Internal Medicine; PCP Internal Medicine; Visit Provider Nurse Practitioner Family | DX: I21.4 Non-ST elevation (NSTEMI) myocardial infarction (principal); E78.5 Hyperlipidemia, unspecified; I10 Essential (primary) hypertension | CPT/HCPCS: 99233; 99239 ==

== ENCOUNTER → 2024-11-25 02:30 | Outpatient (BNV) | payer OTHER, SELFPAY | PROVIDERS: Admitting Provider Nurse Practitioner Family; Emergency Provider Internal Medicine; PCP Internal Medicine; Visit Provider Internal Medicine | DX: I21.4 Non-ST elevation (NSTEMI) myocardial infarction (principal) | CPT/HCPCS: 93010; 99223 ==

== ENCOUNTER 2024-12-24 09:52 | Outpatient (AMB) | payer OTHER, SELFPAY ==
[2024-12-24 09:56] VITALS: BP 144/70; PULSE 76; O2SAT 99; BMI 35.4
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
== END 2024-12-24 10:20 | disposition home or self-care (01) ==
LOC: HO.HPS 09:52
PROVIDERS: PCP Internal Medicine; Referring Provider Internal Medicine; Visit Provider Hospitalist
DX: I21.4 Non-ST elevation (NSTEMI) myocardial infarction (principal); R91.1 Solitary pulmonary nodule; F17.210 Nicotine dependence, cigarettes, uncomplicated
CPT/HCPCS: 99205

== ENCOUNTER → 2024-12-24 09:52 | Outpatient (BNVA) | payer OTHER, SELFPAY | PROVIDERS: PCP Internal Medicine; Referring Provider Internal Medicine; Visit Provider Hospitalist | DX: Z00.01 Encounter for general adult medical examination with abnormal findings (principal); E78.00 Pure hypercholesterolemia, unspecified; M54.50 Low back pain, unspecified; G89.29 Other chronic pain; I21.4 Non-ST elevation (NSTEMI) myocardial infarction; R91.1 Solitary pulmonary nodule; Z72.0 Tobacco use | CPT/HCPCS: 96127; 99202; 99396 ==

== ENCOUNTER 2024-12-24 10:24 | Outpatient (AMB) | payer OTHER, SELFPAY ==
[2024-12-24 10:30] VITALS: BP 128/68; PULSE 73; O2SAT 98; BMI 35.1
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
== END 2024-12-24 12:22 | disposition home or self-care (01) ==
LOC: HO.HMCH 10:25
PROVIDERS: PCP Internal Medicine; Visit Provider Internal Medicine
DX: Z00.00 Encounter for general adult medical examination without abnormal findings (principal); E78.00 Pure hypercholesterolemia, unspecified; Z72.0 Tobacco use; I25.2 Old myocardial infarction; M54.50 Low back pain, unspecified; G89.29 Other chronic pain; Z12.31 Encounter for screening mammogram for malignant neoplasm of breast

== ENCOUNTER 2024-12-28 07:54 | Outpatient (AMB) | payer OTHER, SELFPAY ==
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
[2024-12-28 08:15] VITALS: BP 130/80; PULSE 71; BMI 35.8
== END 2024-12-28 08:47 | disposition home or self-care (01) ==
LOC: HO.HCS 07:55
PROVIDERS: PCP Internal Medicine; Visit Provider Nurse Practitioner Family
DX: I21.4 Non-ST elevation (NSTEMI) myocardial infarction (principal); I10 Essential (primary) hypertension; E78.00 Pure hypercholesterolemia, unspecified; Z72.0 Tobacco use; I25.10 Atherosclerotic heart disease of native coronary artery without angina pectoris
CPT/HCPCS: 99214; G2211

== ENCOUNTER → 2024-12-28 07:54 | Outpatient (BNVA) | payer OTHER, SELFPAY | PROVIDERS: PCP Internal Medicine; Visit Provider Nurse Practitioner Family | DX: I21.4 Non-ST elevation (NSTEMI) myocardial infarction (principal); I25.10 Atherosclerotic heart disease of native coronary artery without angina pectoris; I10 Essential (primary) hypertension; E78.00 Pure hypercholesterolemia, unspecified; F17.210 Nicotine dependence, cigarettes, uncomplicated | CPT/HCPCS: 99212 ==

== ENCOUNTER 2025-01-13 18:39 | Outpatient (REF) | payer OTHER, SELFPAY ==
--- NOTE | ~2025-01-13 | MR_ITS ---
CLINICAL HISTORY: persistant chronic lbp radiating MR lumbar spine without gadolinium Comparison: CR/SR - XR LUMBAR SPINE 2-3V - 11/13/23 03:33 EDT Findings: No scoliosis or spondylolisthesis. No acute fracture or pathologic bone lesion. There are several hemangiomas. There are very mild degenerative type endplate marrow changes. Cauda equina and conus medullaris within normal limits. L1-L2: Mild broad-based disc bulge. No significant central canal or neural foraminal narrowing. L2-L3: Minimal broad-based disc bulge. No central canal or neural foraminal narrowing. L3-L4: No disc bulge or herniation. No central canal or neural foraminal narrowing. L4-L5: No disc bulge or herniation. Mild facet osteoarthritis. No significant narrowing of the central canal or neural foramina. L5-S1: Very mild broad-based disc bulge. Mild facet osteoarthritis. No significant narrowing of the central canal or neural foramina. Paraspinous musculature intact. There is a 2.7 cm circumscribed nodule arising from the left kidney. This is T1 isointense and T2 hypointense. IMPRESSION: 1. No acute abnormality of the lumbar spine. Mild spondylosis as above. 2. 2.7 cm circumscribed nodule arising from the left kidney. This does not represent a simple cyst. Recommend ultrasound evaluation. This document has been electronically signed by: Kim Smith MD on 01/15/2025 14:13:32
== END 2025-01-13 18:40 | disposition home or self-care (01) ==
LOC: HO.MRI 18:39
PROVIDERS: PCP Internal Medicine; Visit Provider Physical Medicine & Rehabilitation
DX: M54.50 Low back pain, unspecified (principal)
CPT/HCPCS: 72148

== ENCOUNTER → 2025-01-13 18:50 | Outpatient (BNV) | payer OTHER, SELFPAY | PROVIDERS: PCP Internal Medicine; Visit Provider Radiology Diagnostic Radiology | DX: N28.89 Other specified disorders of kidney and ureter (principal) | CPT/HCPCS: 72148 ==

== ENCOUNTER 2025-01-28 07:17 | Outpatient (REF) | payer OTHER, SELFPAY ==
--- NOTE | ~2025-01-28 | CT_ITS ---
CLINICAL HISTORY: R91.1 - Solitary pulmonary nodule CT chest without contrast Comparison: CR - XR CHEST 2V - 11/24/24 22:36 EDT Findings: The heart size is normal. There is a right thyroid nodule measuring 22 mm. No evidence of pneumonia or edema. There is a 5 mm subpleural nodule within the right upper lobe posteromedially (image 33). The visualized upper abdomen is unremarkable. The bones are intact. IMPRESSION: 1. Right upper lobe pulmonary nodule. Optional follow-up CT in 12 months recommended for further assessment. 2. Right thyroid nodule which could be further assessed with ultrasound, if clinically indicated. This document has been electronically signed by: Tuyet Muir MD on 01/28/2025 14:45:08
== END 2025-01-28 07:18 | disposition home or self-care (01) ==
LOC: HO.CT 07:17
PROVIDERS: PCP Internal Medicine; Visit Provider Hospitalist
DX: R91.1 Solitary pulmonary nodule (principal)
CPT/HCPCS: 71250

== ENCOUNTER → 2025-01-28 07:19 | Outpatient (BNV) | payer OTHER, SELFPAY | PROVIDERS: PCP Internal Medicine; Visit Provider Radiology Diagnostic Radiology | DX: R91.1 Solitary pulmonary nodule (principal); E04.1 Nontoxic single thyroid nodule | CPT/HCPCS: 71250 ==

== ENCOUNTER 2025-02-05 12:32 | Outpatient (REF) | payer OTHER, SELFPAY ==
--- NOTE | ~2025-02-05 | US_ITS ---
CLINICAL HISTORY: N28.1 - Cyst of kidney, acquired US of kidneys Comparison: None Findings: Right kidney is normal in size, echogenicity and morphology, 11.5 cm in length. 3 mm calculus in the midpole, 2 mm calculus in the lower pole. No hydronephrosis or mass. Left kidney is normal in size, echogenicity and morphology, 10.9 cm in length. No calculus or hydronephrosis. Hypoechoic cortical mass 2.6 x 2.7 x 2.4 cm in the upper pole, no intralesional color flow. Limited color Doppler demonstrates unremarkable bilateral blood flow. Impression: 1. Left renal mass, malignancy needs to be excluded, recommend renal MRI or CT without and with IV contrast. 2. Nonobstructing right nephrolithiasis. This document has been electronically signed by: Katie Yeh MD on 02/06/2025 11:17:55
== END 2025-02-05 12:33 | disposition home or self-care (01) ==
LOC: HO.US 12:32
PROVIDERS: PCP Internal Medicine; Visit Provider Internal Medicine
DX: N28.1 Cyst of kidney, acquired (principal)
CPT/HCPCS: 76775

== ENCOUNTER → 2025-02-05 12:33 | Outpatient (BNV) | payer OTHER, SELFPAY | PROVIDERS: PCP Internal Medicine; Visit Provider Radiology Diagnostic Radiology | DX: N20.0 Calculus of kidney (principal); N28.89 Other specified disorders of kidney and ureter | CPT/HCPCS: 76775 ==

== ENCOUNTER 2025-02-18 10:55 | Outpatient (AMB) | payer OTHER, SELFPAY ==
[2025-02-18 10:57] VITALS: BP 160/86; PULSE 56; O2SAT 98; BMI 37.4
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
== END 2025-02-18 11:32 | disposition home or self-care (01) ==
LOC: HO.HPS 10:56
PROVIDERS: PCP Internal Medicine; Visit Provider Hospitalist
DX: Z72.0 Tobacco use (principal); I25.10 Atherosclerotic heart disease of native coronary artery without angina pectoris; R91.1 Solitary pulmonary nodule; R06.02 Shortness of breath; I21.4 Non-ST elevation (NSTEMI) myocardial infarction
CPT/HCPCS: 99213; G2211

== ENCOUNTER → 2025-02-18 10:55 | Outpatient (BNVA) | payer OTHER, SELFPAY | PROVIDERS: PCP Internal Medicine; Visit Provider Hospitalist | DX: I25.10 Atherosclerotic heart disease of native coronary artery without angina pectoris (principal); R91.1 Solitary pulmonary nodule; Z72.0 Tobacco use; R06.02 Shortness of breath; I21.4 Non-ST elevation (NSTEMI) myocardial infarction | CPT/HCPCS: 99212 ==

== ENCOUNTER 2025-03-26 12:49 | Outpatient (REF) | payer OTHER, SELFPAY ==
--- NOTE | ~2025-03-26 | US_ITS ---
EXAMINATION: US THYROID HISTORY: E04.1 - Nontoxic single thyroid nodule TECHNIQUE: Real-time grayscale ultrasound imaging was performed and images were reviewed. COMPARISON: Correlation is made with a chest CT dated 01/28/2025. FINDINGS: SIZE: The right thyroid lobe measures 4.7 x 2.2 x 1.8 cm. The left thyroid lobe measures 4.9 x 2.2 x 1.3 cm. The isthmus measures 2 mm. FLOW: Flow to the gland is normal. ECHOGENICITY: The echotexture of the gland is homogeneous. NODULES: Multiple nodules are identified as described below: Nodule #: 1 Location: Midportion of the left thyroid lobe measuring 7 x 5 x 8 mm. Shape: Wider than tall (0 points) Margins: Smooth (0 points) Echotexture: Hypoechoic (2 points) Composition: Indeterminate (2 points) Calcifications: None (0 points) Total points: 4 TIRADS: TR4: Moderately suspicious. Nodule #: 2 Location: Midportion of the left thyroid lobe measuring 7 x 6 x 7 mm. Shape: Wider than tall (0 points) Margins: Smooth (0 points) Echotexture: Isoechoic (1 point) Composition: Indeterminate (2 points) Calcifications: None (0 points) Total points: 3 TIRADS: TR3: Mildly suspicious. Nodule #: 3 Location: Midportion of the right thyroid lobe measuring 14 x 10 x 8 mm. Shape: Taller than wide (3 points) Margins: Extrathyroidal extension (3 points) Echotexture: Hypoechoic (2 points) Composition: Solid (2 points) Calcifications: Punctate calcifications (3 points) Total points: 13 TIRADS: TR5: Highly suspicious. Nodule #: 4 Location: Lower pole of the right thyroid lobe measuring 2.0 x 1.8 x 1.6 cm. Shape: Taller than wide (3 points) Margins: Smooth (0 points) Echotexture: Hypoechoic (2 points) Composition: Mostly solid (2 points) Calcifications: None (0 points) Total points: 7 TIRADS: TR5: Highly suspicious. US/US thyroid IMPRESSION: Multiple thyroid nodules are identified bilaterally. According to ACR TI-RADS guidelines below, ultrasound-guided fine-needle aspiration of the two largest right-sided nodules (nodules #3 and #4 above) is recommended. ACR TI-RADS Guidelines TR1 (0 points): Benign. No follow-up or biopsy required TR2 (2 points): Not Suspicious. No biopsy or follow up indicated TR3 (3 points): Mildly Suspicious. FNA if >= 2.5 cm, Follow if >= 1.5 cm TR4 (4-6 points): Moderately Suspicious. FNA if >= 1.5 cm, Follow if >= 1.0 cm TR5 (>=7 points): Highly Suspicious. FNA if >= 1.0 cm, Follow if >= 0.5 cm Electronically signed by: Isael Clarke MD 03/26/2025 01:39 PM EDT
== END 2025-03-26 12:50 | disposition home or self-care (01) ==
LOC: HO.US 12:49
PROVIDERS: PCP Internal Medicine; Visit Provider Internal Medicine
DX: E04.1 Nontoxic single thyroid nodule (principal)
CPT/HCPCS: 76536

== ENCOUNTER → 2025-03-26 12:51 | Outpatient (BNV) | payer OTHER, SELFPAY | PROVIDERS: PCP Internal Medicine; Visit Provider Radiology Diagnostic Radiology | DX: E04.2 Nontoxic multinodular goiter (principal) | CPT/HCPCS: 76536 ==

== ENCOUNTER 2025-03-27 09:03 | Outpatient (AMB) | payer OTHER, SELFPAY ==
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
== END 2025-03-27 09:56 | disposition home or self-care (01) ==
LOC: HO.HUSH 09:04
PROVIDERS: PCP Internal Medicine; Visit Provider Urology
DX: N28.1 Cyst of kidney, acquired (principal); N28.89 Other specified disorders of kidney and ureter
CPT/HCPCS: 99203

== ENCOUNTER → 2025-03-27 09:03 | Outpatient (BNVA) | payer OTHER, SELFPAY | PROVIDERS: PCP Internal Medicine; Visit Provider Urology | DX: N28.89 Other specified disorders of kidney and ureter (principal); N28.1 Cyst of kidney, acquired | CPT/HCPCS: 81003; 99202 ==

== ENCOUNTER 2025-04-16 15:56 | Emergency (ER) | payer OTHER, SELFPAY ==
[2025-04-16 16:28] VITALS: BP 161/64; PULSE 63; RESP 18; TEMP 37.1; O2SAT 97; BMI 38.4
[2025-04-16 18:19] VITALS: BP 165/65; PULSE 62; RESP 15; TEMP 36.6; O2SAT 96
--- NOTE | 2025-04-16 21:00 | PC.NURSE ---
Pt states she will not wait any longer to be seen, and is requesting discharge. PA made aware of pt leaving without being seen, pt verbalizes understanding of risks of leaving without being evaluated/treated, pt aaox4, independent/ambulatory w/steady gait. Pt agrees to come back to ER with any worsening symptoms or change in symptoms. Pt left ED.
== END 2025-04-16 21:19 | disposition left against medical advice (07) ==
PROVIDERS: Emergency Provider Emergency Medicine; PCP Internal Medicine
DX: M54.50 Low back pain, unspecified (principal); Z53.21 Procedure and treatment not carried out due to patient leaving prior to being seen by health care provider
CPT/HCPCS: 99281; 99284

== ENCOUNTER 2025-04-17 14:46 | Outpatient (AMB) | payer OTHER, SELFPAY ==
[2025-04-17 14:55] VITALS: BP 130/72; PULSE 65; TEMP 36.7; O2SAT 97; BMI 38.4
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
== END 2025-04-17 16:18 | disposition home or self-care (01) ==
PROVIDERS: PCP Internal Medicine; Visit Provider Physician Assistant Medical
DX: Z13.9 Encounter for screening, unspecified (principal); M54.42 Lumbago with sciatica, left side

== ENCOUNTER → 2025-04-17 14:46 | Outpatient (BNVA) | payer OTHER, SELFPAY | PROVIDERS: PCP Internal Medicine; Visit Provider Physician Assistant Medical | DX: M54.42 Lumbago with sciatica, left side (principal); R10.31 Right lower quadrant pain; I10 Essential (primary) hypertension; E78.5 Hyperlipidemia, unspecified; Z79.01 Long term (current) use of anticoagulants | CPT/HCPCS: 81003; 99212 ==

== ENCOUNTER 2025-04-19 09:23 | Outpatient (AMB) | payer OTHER, SELFPAY ==
[2025-04-19 09:28] VITALS: BP 138/82; PULSE 62; TEMP 36.2; O2SAT 98; BMI 38.3
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
== END 2025-04-19 10:13 | disposition home or self-care (01) ==
LOC: HO.HMCH 09:23
PROVIDERS: PCP Internal Medicine; Visit Provider Internal Medicine
DX: I10 Essential (primary) hypertension (principal); I25.10 Atherosclerotic heart disease of native coronary artery without angina pectoris; E78.00 Pure hypercholesterolemia, unspecified; E04.1 Nontoxic single thyroid nodule; R91.1 Solitary pulmonary nodule; Z72.0 Tobacco use; N28.89 Other specified disorders of kidney and ureter; M54.50 Low back pain, unspecified

== ENCOUNTER → 2025-04-19 09:23 | Outpatient (BNVA) | payer OTHER, SELFPAY | PROVIDERS: PCP Internal Medicine; Visit Provider Internal Medicine | DX: I25.10 Atherosclerotic heart disease of native coronary artery without angina pectoris (principal); I10 Essential (primary) hypertension; E78.00 Pure hypercholesterolemia, unspecified; E04.1 Nontoxic single thyroid nodule; R91.1 Solitary pulmonary nodule; N28.89 Other specified disorders of kidney and ureter; M54.50 Low back pain, unspecified; Z87.891 Personal history of nicotine dependence | CPT/HCPCS: 99212 ==

== ENCOUNTER 2025-05-10 15:32 | Outpatient (REF) | payer OTHER, SELFPAY ==
[2025-05-10 15:48] LABS: MANUAL DIFF FLAG NO
[2025-05-10 16:57] LABS: Hematocrit 37.1 % (37.0-47.0); Hemoglobin 12.5 g/dl (12.0-16.0); Imm Gran Abs Auto 0.09 X10*3/uL (0.00-0.03); Imm Gran Pct Auto 1.0 % (0.0-0.4); Lymphocytes Absolute Auto 1.6 X10*3/uL (1.2-4.9); Mean Corpuscular HGB Conc 33.7 g/dl (31.0-35.0); Mean Corpuscular Hemoglobin 26.7 pg (27.0-33.0); Mean Corpuscular Volume 79.3 fL (80.0-98.0); NRBC Abs Auto 0.000 X10*3/uL (0.0-0.012); NRBC Pct Auto 0.0 /100WBC (0.0-0.2); Platelet Count 256 X10*3/uL (160-400); Red Blood Count 4.68 X10*6/uL (4.20-5.50); White Blood Count 8.6 X10*3/uL (4.8-10.8)
[2025-05-10 17:06] LABS: Hemoglobin A1C 116.0029 umol/L; Total Hemoglobin (HGBA1C) 3203.5758 umol/L
[2025-05-10 17:30] LABS: Alanine Aminotransferase 24 U/L (0-31); Albumin Level 4.3 g/dL (3.5-5.0); Alkaline Phosphatase 135 U/L (39-117); Anion Gap 11 (12-20); Aspartate Amino Transferase 28 U/L (5-31); Blood Urea Nitrogen 6 mg/dL (9-16); Calcium 9.4 mg/dL (8.4-10.2); Carbon Dioxide 25 mmol/L (22-29); Chloride 110 mmol/L (96-108); Cholesterol 157 mg/dL (<200); Estimated Glomerular Filt Rate > 60; HDL Cholesterol 41 mg/dL (>40); Potassium 3.8 mmol/L (3.3-5.1); Sodium 142 mmol/L (135-145); Total Protein 7.9 g/dL (6.5-8.0); Triglycerides 135 mg/dL (<150)
[2025-05-10 17:46] LABS: Free T4 (Free Thyroxine) 0.75 ng/dL (0.71-1.85); Thyroid Stimulating Hormone 0.20 uIU/mL (0.32-4.0)
[2025-05-10 17:55] LABS: Folate 9.5 ng/mL (> or = 4.0); Vitamin B12 457 pg/mL (200-900)
== END 2025-05-10 15:33 | disposition home or self-care (01) ==
LOC: HO.LAB 15:32
PROVIDERS: PCP Internal Medicine; Visit Provider Internal Medicine
DX: I21.4 Non-ST elevation (NSTEMI) myocardial infarction (principal); E78.00 Pure hypercholesterolemia, unspecified
CPT/HCPCS: 36415; 80053; 80061; 82306; 82607; 82746; 83036; 84439; 84443; 85025

== ENCOUNTER 2025-05-22 10:56 | Outpatient (REF) | payer OTHER, SELFPAY ==
--- NOTE | ~2025-05-22 | CT_ITS ---
EXAMINATION: CT ABDOMEN WITHOUT THEN WITH IV CONTRAST HISTORY: C64.9 - Malignant neoplasm of unspecified kidney, except renal pelvis COMPARISON: Comparison is made with the prior examination dated 06/29/2017. Correlation is also made with a renal ultrasound dated 02/05/2025. TECHNIQUE: CT scan of the abdomen was performed before and after the intravenous administration of 85 mL Omnipaque 350. Coronal and sagittal reformatted images were generated and reviewed. Oral contrast material was not administered per department protocol. This CT exam was performed with one or more of the following dose reduction techniques: automated exposure control, adjustment of the mA and/or kV according to patient size, use of iterative reconstruction technique. DLP: 504 mGy-cm ABDOMEN: LOWER CHEST: The visualized lung bases are clear. There is no pleural effusion. CARDIOVASCULATURE: The heart is normal in size. There is no pericardial effusion. LIVER: The liver is normal in size and contour. No liver mass is identified. The hepatic and portal veins are patent. GALLBLADDER / BILE DUCTS: The gallbladder is unremarkable. There is no intra or extrahepatic biliary ductal dilatation. SPLEEN: The spleen is normal in size. No focal splenic lesion is identified. PANCREAS: The pancreas is unremarkable in appearance. ADRENAL GLANDS: Within normal limits. KIDNEYS/RETROPERITONEUM: No renal calculi are identified. There is no hydronephrosis. There is a 3.0 cm mass at the upper pole of the left kidney which measures 18.8 HU in density on the unenhanced examination and 42.6HU in density on the postcontrast images. Findings are consistent with a solid mass. The renal veins are patent. Please note that an accessory left renal vein courses posterior to the abdominal aorta. LYMPH NODES: There are subcentimeter para-aortic lymph nodes which are not enlarged by CT criteria. VASCULATURE: The abdominal aorta is normal in caliber. MESENTERY/PERITONEUM: No free fluid. No masses. There is no free intraperitoneal gas. STOMACH: The stomach is collapsed, limiting evaluation. SMALL BOWEL: The visualized small bowel is normal in caliber. COLON: The visualized portion colon is unremarkable. BONES / SOFT TISSUES: No suspicious bony or soft tissue abnormalities. CT/CT abdomen wo/w IV con IMPRESSION: 3.0 cm mass at the upper pole of the left kidney, compatible with neoplasm. Electronically signed by: Isael Clarke MD 05/22/2025 12:14 PM EDT RP
[2025-05-22] MEDS: iohexoL 350 MG/ML 100 ML INFUS..BTL IV (11:53)
== END 2025-05-22 10:57 | disposition home or self-care (01) ==
LOC: HO.CT 10:56
PROVIDERS: PCP Internal Medicine; Visit Provider Urology
DX: C64.9 Malignant neoplasm of unspecified kidney, except renal pelvis (principal); N28.89 Other specified disorders of kidney and ureter
CPT/HCPCS: 74170; Q9967

== ENCOUNTER → 2025-05-22 10:58 | Outpatient (BNV) | payer OTHER, SELFPAY | PROVIDERS: PCP Internal Medicine; Visit Provider Radiology Diagnostic Radiology | DX: C64.9 Malignant neoplasm of unspecified kidney, except renal pelvis (principal) | CPT/HCPCS: 74170 ==

== ENCOUNTER 2025-05-31 10:04 | Outpatient (AMB) | payer OTHER, SELFPAY ==
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
== END 2025-05-31 10:38 | disposition home or self-care (01) ==
LOC: HO.HUSH 10:04
PROVIDERS: PCP Internal Medicine; Visit Provider Urology
DX: C64.9 Malignant neoplasm of unspecified kidney, except renal pelvis (principal)
CPT/HCPCS: 99213

== ENCOUNTER 2025-06-13 09:07 | Day surgery (SDC) | payer OTHER, SELFPAY ==
[2025-06-13] VITALS (14 sets, daily range): BP systolic 119–196; BP diastolic 52–95; PULSE 54–68; RESP 10–16; TEMP 36.2–36.5; O2SAT 96–100; BMI 37.4
--- NOTE | ~2025-06-13 | CT_ITS ---
PROCEDURE: CT GUIDED BIOPSY, KIDNEY CLINICAL INFORMATION: Exophytic heterogenous mass upper pole left kidney COMPARISON: CT abdomen 05/22/2025. TECHNIQUE: Following explaining CT fluoroscopy guided left renal mass biopsy procedure, benefits and risk, a written consent was obtained. Patient was placed prone on CT fluoroscopy table and pulmonary CT imaging was obtained through the kidneys. An optimal axial slices selected and markers placed along the posterior abdomen overlying the kidney mass and repeat imaging was obtained. An optimal marker was selected and marked on the skin. The marked site was cleaned and draped in usual sterile manner with 2% chlorhexidine solution. 1% lidocaine was injected puncture site. Through a small skin incision a 18-gauge guide needle was advanced from the skin into the upper margin of the right renal mass. Coaxially a biopsy needle was inserted 3 pass core biopsy of the renal mass was obtained. Sterile dressing applied post procedure. There were no immediate complications. Postprocedure repeat imaging was obtained revealing no hemorrhage except for postop changes. This CT examination was performed using dose optimization techniques as appropriate, variously including the following: *Automated exposure control *Adjustment of mA and/or kV according to patient size (this includes techniques or standardized protocols for targeted exams where dose is matched to indication/reason for exam; i.e. extremities or head) *Use of iterative reconstruction technique FINDINGS: On preliminary CT imaging there is a heterogeneous exophytic mass upper pole left kidney medial aspect. CT fluoroscopy guided left renal mass biopsy performed. Postprocedure repeat CT imaging revealed no bleed except for punctate air within the renal mass, postbiopsy changes. CT/CT biopsy renal LT IMPRESSION: Successful CT fluoroscopy guided exophytic left renal mass core biopsy performed without immediate complications. DLP: 4:15. Sedation time: 25 minutes. Electronically signed by: Larry Moreno MD 06/17/2025 11:33 AM EDT
[2025-06-13 09:29] LABS: MANUAL DIFF FLAG NO
[2025-06-13 09:35] LABS: Hematocrit 37.5 % (37.0-47.0); Hemoglobin 12.1 g/dl (12.0-16.0); Imm Gran Abs Auto 0.02 X10*3/uL (0.00-0.03); Imm Gran Pct Auto 0.3 % (0.0-0.4); Lymphocytes Absolute Auto 1.7 X10*3/uL (1.2-4.9); Mean Corpuscular HGB Conc 32.3 g/dl (31.0-35.0); Mean Corpuscular Hemoglobin 26.3 pg (27.0-33.0); Mean Corpuscular Volume 81.5 fL (80.0-98.0); NRBC Abs Auto 0.000 X10*3/uL (0.0-0.012); NRBC Pct Auto 0.0 /100WBC (0.0-0.2); Platelet Count 264 X10*3/uL (160-400); Red Blood Count 4.60 X10*6/uL (4.20-5.50); White Blood Count 7.0 X10*3/uL (4.8-10.8)
[2025-06-13 09:42] LABS: UPreg QC Valid YES
[2025-06-13 09:43] LABS: INTERNATIONAL NORM RATIO 1.0 (0.9-1.1); Prothrombin Time 11.5 SEC (10.9-12.4)
[2025-06-13 09:55] LABS: Anion Gap 11 (12-20); Blood Urea Nitrogen 8 mg/dL (9-16); Calcium 9.3 mg/dL (8.4-10.2); Carbon Dioxide 23 mmol/L (22-29); Chloride 111 mmol/L (96-108); Creatinine Clr Calc Pharmacy 96.5; Estimated Glomerular Filt Rate > 60; Potassium 3.8 mmol/L (3.3-5.1); Sodium 141 mmol/L (135-145)
[2025-06-13] MEDS: oxyCODONE HCl Immed Release 5 MG TABLET PO (12:24)
== END 2025-06-13 13:34 | disposition home or self-care (01) ==
PROVIDERS: Radiology Diagnostic Radiology; PCP Internal Medicine; Visit Provider Urology
DX: C64.2 Malignant neoplasm of left kidney, except renal pelvis (principal); N28.1 Cyst of kidney, acquired; I10 Essential (primary) hypertension; R91.1 Solitary pulmonary nodule; D64.9 Anemia, unspecified; D50.9 Iron deficiency anemia, unspecified; E78.00 Pure hypercholesterolemia, unspecified; E55.9 Vitamin D deficiency, unspecified; Z87.442 Personal history of urinary calculi; G43.909 Migraine, unspecified, not intractable, without status migrainosus; E66.9 Obesity, unspecified; Z79.899 Other long term (current) drug therapy; Z88.6 Allergy status to analgesic agent; Z87.891 Personal history of nicotine dependence; Z56.0 Unemployment, unspecified
CPT/HCPCS: 36415; 50200; 77012; 80048; 81025; 85025; 85610; 86850; 86900; 86901; 88305; 88341; 88342; 88344; 99152; J2003; J2250; J3010

== ENCOUNTER → 2025-06-13 10:16 | Outpatient (BNV) | payer OTHER, SELFPAY | PROVIDERS: PCP Internal Medicine; Visit Provider Radiology Diagnostic Radiology | DX: C64.9 Malignant neoplasm of unspecified kidney, except renal pelvis (principal) | CPT/HCPCS: 50200; 77012 ==

== ENCOUNTER 2025-06-18 10:39 | Outpatient (AMB) | payer OTHER, SELFPAY ==
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
== END 2025-06-18 11:48 | disposition home or self-care (01) ==
LOC: HO.HUSH 10:40
PROVIDERS: PCP Internal Medicine; Visit Provider Urology
DX: C64.9 Malignant neoplasm of unspecified kidney, except renal pelvis (principal)
CPT/HCPCS: 99214

== ENCOUNTER → 2025-06-18 10:39 | Outpatient (BNVA) | payer OTHER, SELFPAY | PROVIDERS: PCP Internal Medicine; Visit Provider Urology | DX: C64.2 Malignant neoplasm of left kidney, except renal pelvis (principal) | CPT/HCPCS: 99212 ==

== ENCOUNTER 2025-07-02 14:46 | Outpatient (REF) | payer OTHER, SELFPAY ==
[2025-07-02 17:11] LABS: Blood Urea Nitrogen 8 mg/dL (9-16); Estimated Glomerular Filt Rate > 60
[2025-07-02 17:28] LABS: Free T4 (Free Thyroxine) 0.81 ng/dL (0.71-1.85); Thyroid Stimulating Hormone 0.21 uIU/mL (0.32-4.0)
== END 2025-07-02 14:47 | disposition home or self-care (01) ==
LOC: HO.LAB 14:46
PROVIDERS: Absent Provider Internal Medicine; PCP Internal Medicine; Visit Provider Internal Medicine
DX: I25.10 Atherosclerotic heart disease of native coronary artery without angina pectoris (principal); N28.89 Other specified disorders of kidney and ureter; R79.89 Other specified abnormal findings of blood chemistry; I21.4 Non-ST elevation (NSTEMI) myocardial infarction; I10 Essential (primary) hypertension; Z87.891 Personal history of nicotine dependence
CPT/HCPCS: 36415; 82565; 84439; 84443; 84520; 99212

== ENCOUNTER 2025-07-02 14:46 | Outpatient (AMB) | payer OTHER, SELFPAY ==
[2025-07-02 14:49] VITALS: BP 124/62; PULSE 68; BMI 37.4
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
== END 2025-07-02 15:22 | disposition home or self-care (01) ==
LOC: HO.HCS 14:47
PROVIDERS: PCP Internal Medicine; Visit Provider Internal Medicine
DX: I25.10 Atherosclerotic heart disease of native coronary artery without angina pectoris (principal); I21.4 Non-ST elevation (NSTEMI) myocardial infarction; I10 Essential (primary) hypertension
CPT/HCPCS: 99214

== ENCOUNTER 2025-07-24 10:56 | Outpatient (AMB) | payer OTHER, SELFPAY ==
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
[2025-07-24 11:03] VITALS: BP 130/72; PULSE 89; RESP 16; O2SAT 99; BMI 37.9
== END 2025-07-24 11:42 | disposition home or self-care (01) ==
LOC: HO.ENCR 10:58
PROVIDERS: PCP Internal Medicine; Visit Provider Internal Medicine Endocrinology, Diabetes & Metabolism
DX: E04.1 Nontoxic single thyroid nodule (principal)
CPT/HCPCS: 99204

== ENCOUNTER → 2025-07-24 10:56 | Outpatient (BNVA) | payer OTHER, SELFPAY | PROVIDERS: PCP Internal Medicine; Visit Provider Internal Medicine Endocrinology, Diabetes & Metabolism | DX: E04.1 Nontoxic single thyroid nodule (principal) | CPT/HCPCS: 99202 ==

== ENCOUNTER 2025-07-24 11:44 | Outpatient (REF) | payer OTHER, SELFPAY ==
[2025-07-24 14:58] LABS: Anion Gap 13 (12-20); Blood Urea Nitrogen 8 mg/dL (9-16); Calcium 9.5 mg/dL (8.4-10.2); Carbon Dioxide 23 mmol/L (22-29); Chloride 107 mmol/L (96-108); Estimated Glomerular Filt Rate > 60; Free T4 (Free Thyroxine) 0.80 ng/dL (0.71-1.85); Potassium 4.0 mmol/L (3.3-5.1); Sodium 139 mmol/L (135-145); Thyroid Stimulating Hormone 0.24 uIU/mL (0.32-4.0)
== END 2025-07-24 11:45 | disposition home or self-care (01) ==
LOC: HO.10HDL 11:44
PROVIDERS: Visit Provider Internal Medicine Endocrinology, Diabetes & Metabolism
DX: E04.1 Nontoxic single thyroid nodule (principal); I10 Essential (primary) hypertension
CPT/HCPCS: 36415; 80048; 84439; 84443; 84702

== ENCOUNTER 2025-08-12 10:42 | Outpatient (AMB) | payer OTHER, SELFPAY ==
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
[2025-08-12 11:01] VITALS: BP 140/74; PULSE 69; RESP 18; TEMP 36.2; O2SAT 97; BMI 38.6
== END 2025-08-12 11:40 | disposition home or self-care (01) ==
LOC: HO.HMCH 10:43
PROVIDERS: PCP Internal Medicine; Visit Provider Internal Medicine
DX: I10 Essential (primary) hypertension (principal); C64.9 Malignant neoplasm of unspecified kidney, except renal pelvis; I25.10 Atherosclerotic heart disease of native coronary artery without angina pectoris; E78.00 Pure hypercholesterolemia, unspecified; E04.1 Nontoxic single thyroid nodule; M54.50 Low back pain, unspecified; G89.29 Other chronic pain; Z72.0 Tobacco use

== ENCOUNTER → 2025-08-12 10:42 | Outpatient (BNVA) | payer OTHER, SELFPAY | PROVIDERS: PCP Internal Medicine; Visit Provider Internal Medicine | DX: I10 Essential (primary) hypertension (principal); I25.10 Atherosclerotic heart disease of native coronary artery without angina pectoris; E78.00 Pure hypercholesterolemia, unspecified; E04.1 Nontoxic single thyroid nodule; C64.9 Malignant neoplasm of unspecified kidney, except renal pelvis; M54.50 Low back pain, unspecified; G89.29 Other chronic pain; Z72.0 Tobacco use | CPT/HCPCS: 99212 ==